=== PATIENT | female | born 1940 | race Caucasian/White ===

== ENCOUNTER → 2016-04-06 | Outpatient (CLI) | payer MEDICARE, MEDICAID ==
[~2016-04-06] MED LIST: /GLYB5TA OR; /LABE20TA OR; ACTO15TA OR; ASPI325T OR; CRES20TA OR; FERR325T OR; FURO80TA2 OR; LEVO25TA2 OR
[2016-04-06 18:35] LABS: ALBUMIN 3.5 GM/DL (3.2-5.2); CALCIUM LEVEL 9.1 MG/DL (8.8-10.2); CREATININE FOR GFR 2.39 MG/DL (0.55-1.02); GLOMERULAR FILTRATION RATE 20.9 (>39); MAGNESIUM LEVEL 2.5 MG/DL (1.8-2.4); PHOSPHORUS LEVEL 3.6 MG/DL (2.5-4.9); POTASSIUM SERUM 3.9 MEQ/L (3.5-5.1)
[2016-04-06 19:00] LABS: MEAN CORPUSCULAR HEMOGLOBIN 26.9 pg (27.0-33.0); MEAN CORPUSCULAR HGB CONC 31.8 g/dl (32.0-36.5); MEAN CORPUSCULAR VOLUME 84.5 fl (80.0-96.0); RED CELL DISTRIBUTION WIDTH 14.2 % (11.5-14.5); WHITE BLOOD COUNT 8.8 K/mm3 (4.0-10.0)
[2016-04-06 20:24] LABS: CALCIUM OXALATE CRYSTALS LARGE; RENAL EPITHELIAL CELLS 1 /HPF
== END ==
LOC: M SMT 10:57
PROVIDERS: ATTEND Internal Medicine Nephrology
DX: N18.4 Chronic kidney disease, stage 4 (severe) (principal); E11.22 Type 2 diabetes mellitus with diabetic chronic kidney disease; N25.81 Secondary hyperparathyroidism of renal origin; E03.9 Hypothyroidism, unspecified

== ENCOUNTER → 2016-07-12 | Outpatient (CLI) | payer MEDICARE, MEDICAID ==
[2016-07-12 13:28] LABS: ALBUMIN 3.6 GM/DL (3.2-5.2); CREATININE FOR GFR 2.27 MG/DL (0.55-1.02); GLOMERULAR FILTRATION RATE 22.2 (>39); MAGNESIUM LEVEL 2.5 MG/DL (1.8-2.4); PHOSPHORUS LEVEL 3.6 MG/DL (2.5-4.9)
== END ==
LOC: M SMT 10:21
PROVIDERS: ATTEND Internal Medicine Nephrology
DX: N18.4 Chronic kidney disease, stage 4 (severe) (principal); E11.22 Type 2 diabetes mellitus with diabetic chronic kidney disease; N25.81 Secondary hyperparathyroidism of renal origin

== ENCOUNTER → 2016-07-14 | Outpatient (CLI) | payer MEDICARE, MEDICAID ==
[2016-07-14 19:32] LABS: FREE T4 1.13 NG/DL (0.76-1.46)
== END ==
LOC: M SMT 11:15
PROVIDERS: ATTEND Internal Medicine Nephrology
DX: E03.9 Hypothyroidism, unspecified (principal)

== ENCOUNTER → 2016-10-16 | Outpatient (CLI) | payer MEDICARE, MEDICAID ==
[~2016-10-16] MED LIST changes: +AMLO5TAB2 PO; +CALC1CAP31 PO; +CARV25TA PO; +EZET10TA PO; +GLIP1TAB49 PO; +LEVE1INJ5 SC; +LEVO50TA5 PO; +MULT1TAB10 PO; +ONGL10TA3 PO; +POTA1TAB14 PO; +TORS20TA2 PO
[2016-10-16 13:18] LABS: MEAN CORPUSCULAR HEMOGLOBIN 26.7 pg (27.0-33.0); MEAN CORPUSCULAR HGB CONC 32.6 g/dl (32.0-36.5); MEAN CORPUSCULAR VOLUME 82.1 fl (80.0-96.0); RED CELL DISTRIBUTION WIDTH 15.1 % (11.5-14.5); WHITE BLOOD COUNT 11.2 K/mm3 (4.0-10.0)
[2016-10-16 13:45] LABS: ALBUMIN 3.5 GM/DL (3.2-5.2); CALCIUM LEVEL 9.4 MG/DL (8.8-10.2); CREATININE FOR GFR 2.65 MG/DL (0.55-1.02); GLOMERULAR FILTRATION RATE 18.5 (>39); POTASSIUM SERUM 3.9 MEQ/L (3.5-5.1)
== END ==
LOC: M SMT 10:09
PROVIDERS: ATTEND Internal Medicine Nephrology
DX: N18.4 Chronic kidney disease, stage 4 (severe) (principal); E11.22 Type 2 diabetes mellitus with diabetic chronic kidney disease; N25.81 Secondary hyperparathyroidism of renal origin

== ENCOUNTER → 2016-12-11 | Outpatient (CLI) | payer MEDICARE, MEDICAID ==
--- NOTE | 2016-12-11 15:29 | REP ---
BILATERAL UPPER EXTREMITY DUPLEX DOPPLER ARTERIAL AND VENOUS ULTRASOUND: Real-time ultrasound evaluation and duplex Doppler interrogation of bilateral upper extremity venous and arterial systems performed. There is no evidence of deep vein thrombosis in either jugular, subclavian, axillary, or brachial vein. Bilateral basilic veins are quite small in size, at the level of the upper right humerus and lower humerus 4 mm and on the left at the upper humerus 5 mm in diameter and lower humerus 4 mm in diameter. They are quite small more peripherally. Cephalic vein is 4 mm at the upper humerus and 3 mm at the lower humerus on the right and in the right forearm is between 2 and 3 mm. Median cubital vein on the right is 5 mm. On the left, the cephalic vein is 4 mm at the level of the humerus and 2 mm in the forearm. Median cubital vein is 3 mm. Axillary, brachial, radial, and ulnar arteries are widely patent with triphasic waveforms. Axillary and brachial arteries are 4 mm in diameter bilaterally, and radial and ulnar arteries are 2 mm in diameter bilaterally. Signed by Derrick Arita MD 12/12/2016 07:55 P
== END ==
LOC: M RAD 12:39
PROVIDERS: ATTEND Surgery Vascular Surgery
DX: N18.6 End stage renal disease (principal); Z79.899 Other long term (current) drug therapy

== ENCOUNTER 2016-12-28 09:26 | Day surgery (SDC) | payer MEDICARE, MEDICAID ==
[~2016-12-28] VITALS: Ht 149.9 cm; Wt 73.5 kg
[2016-12-28] MEDS ORDERED: BUPIVACAINE HCL 0.5% 30 ML VIAL As Ordered ONE (11:06)
[2016-12-28] MEDS ORDERED: HEPARIN SOD (PORCINE) 5000 UNITS/ML VIAL As Ordered ONE (11:06)
[2016-12-28] MEDS ORDERED: LIDOCAINE 1% SDV INJ 30 ML VIAL As Ordered ONE (11:07)
[2016-12-28] MEDS ORDERED: fentaNYL 100 MCG/2 ML INJECTION (J3010) As Ordered ONE (11:13)
[2016-12-28] MEDS ORDERED: PROPOFOL 200 MG/20 ML VIAL As Ordered ONE (11:13)
[2016-12-28] MEDS ORDERED: LIDOCAINE 2% INJ 100 MG/5 ML SDV (FOR ANES.) As Ordered ONE (11:13)
[2016-12-28] MEDS ORDERED: MIDAZOLAM INJ 2 MG/2 ML VIAL (J2250) As Ordered ONE (11:14)
[2016-12-28] MEDS ORDERED: ePHEDrine SULFATE 25 MG/5 ML(5MG/ML) SYRINGE As Ordered ONE (12:07)
[2016-12-28] MEDS ORDERED: NORCO, ANEXSIA 5/325MG TABLET (HYDROcodone/ACETAMINOPHEN) PO PRN (13:15)
[2016-12-28] MEDS ORDERED: LR 1,000 ML IV SCH (13:15)
[2016-12-28] MEDS ORDERED: ONDANSETRON 4MG/2ML VIAL (J2405) IV PRN (13:15)
[2016-12-28 14:30] VITALS: BP 139/62
--- NOTE | 2017-01-05 13:31 | RO ---
DATE OF PROCEDURE: 12/28/2016 PREPROCEDURE DIAGNOSIS: Chronic renal insufficiency nearing end stage renal disease. POSTPROCEDURE DIAGNOSIS: Chronic renal insufficiency nearing end stage renal disease. PROCEDURE: Left radiocephalic arterial venous fistula creation. ATTENDING SURGEON: Osmin Avendaño MD HOT DIP PLATER: None. INDICATION: The patient is a 76-year-old female with chronic renal insufficiency nearing end stage renal disease who requires access for hemodialysis in the future. The patient was evaluated and felt to be a good candidate for a left radiocephalic possible left brachiocephalic arteriovenous fistula. Risks, benefits and alternative treatment options were discussed with the patient. ANESTHESIA: Local MAC. ESTIMATED BLOOD LOSS: 20 mL. IV FLUIDS: 500 mL. HEPARIN: None. COMPLICATIONS: None. DRAINS: None. SPECIMENS: None. DESCRIPTION OF PROCEDURE: The patient was taken to the operating room and placed supine on the operating room tablet and the left upper extremity was then prepped and draped in a standard surgical fashion. The skin overlying the cephalic vein and radial artery at the wrist were anesthetized with 1% lidocaine mixed with 0.5% Marcaine, after which two incisions were made, one over the cephalic vein and one over the radial artery and the radial artery and cephalic vein were sharply dissected free and the cephalic vein was then ligated distally and transected with the cephalic vein being dilated with heparinized saline and #5-Libyan and #8-Libyan pediatric feeding tubes. There was good flow noted to the cephalic vein. The cephalic vein was then brought through a tunnel between the two incisions and anastomosed the radial artery in using #6-0 Prolene suture in a running continuous fashion. There was good flow in the fistula. Doppler ultrasound evaluation confirmed excellent flow. The incisions were closed after hemostasis was obtained using #3-0 Monocryl in a running subcuticular fashion. Steri-Strips and dressings were applied. The patient tolerated the procedure well. All instrument, sponge and needle counts were correct at the end of the case. There were no complications. Dr. Avendaño was present for and directed the entire case. The patient was transferred to the recovery room, awake, alert, extubated and in stable condition.
== END 2016-12-28 14:40 | disposition home or self-care (01) ==
LOC: M SDC 09:26
PROVIDERS: ATTEND Surgery Vascular Surgery
DX: N18.6 End stage renal disease (principal); I25.10 Atherosclerotic heart disease of native coronary artery without angina pectoris; I25.2 Old myocardial infarction; E10.9 Type 1 diabetes mellitus without complications; Z79.4 Long term (current) use of insulin; Z88.8 Allergy status to other drugs, medicaments and biological substances; Z79.899 Other long term (current) drug therapy; Z98.61 Coronary angioplasty status
CPT/HCPCS: 36415; 36821; 84132; J2250; J3010

== ENCOUNTER → 2017-01-25 | Outpatient (CLI) | payer MEDICARE, MEDICAID ==
[2017-01-25 14:28] LABS: MEAN CORPUSCULAR HEMOGLOBIN 26.3 pg (27.0-33.0); MEAN CORPUSCULAR HGB CONC 31.4 g/dl (32.0-36.5); MEAN CORPUSCULAR VOLUME 83.8 fl (80.0-96.0); PLATELET COUNT, AUTOMATED 198 10^3/uL (150-450); RED CELL DISTRIBUTION WIDTH 15.3 % (11.5-14.5); WHITE BLOOD COUNT 10.5 10^3/uL (4.0-10.0)
[2017-01-25 15:09] LABS: ALBUMIN 3.2 GM/DL (3.2-5.2); CALCIUM LEVEL 8.5 MG/DL (8.8-10.2); CREATININE FOR GFR 3.01 MG/DL (0.55-1.02); MAGNESIUM LEVEL 2.7 MG/DL (1.8-2.4); PHOSPHORUS LEVEL 6.5 MG/DL (2.5-4.9); POTASSIUM SERUM 4.1 MEQ/L (3.5-5.1)
== END ==
LOC: M SMT 11:14
PROVIDERS: ATTEND Internal Medicine Nephrology
DX: N18.4 Chronic kidney disease, stage 4 (severe) (principal); R60.0 Localized edema; I12.9 Hypertensive chronic kidney disease with stage 1 through stage 4 chronic kidney disease, or unspecified chronic kidney disease

== ENCOUNTER 2017-03-21 14:53 | Day surgery (SDC) | payer MEDICARE, MEDICAID ==
[2017-03-21] MEDS ORDERED: SODIUM CHLORIDE 0.9% 1000 ML IV (15:15)
[2017-03-21 15:50] LABS: POTASSIUM SERUM 3.9 MEQ/L (3.5-5.1)
[2017-03-21 15:53] LABS: BEDSIDE GLUCOSE 168 MG/DL (83-110)
[2017-03-21 17:28] LABS: BEDSIDE GLUCOSE 168 MG/DL (83-110)
[2017-03-21] MEDS: BUPIVACAINE HCL 0.5% 30 ML VIAL As Ordered (19:33)
[2017-03-21] MEDS: LIDOCAINE 1% SDV INJ 30 ML VIAL As Ordered (19:33)
[2017-03-21] MEDS: HEPARIN SOD (PORCINE) 5000 UNITS/ML VIAL As Ordered (19:42)
[2017-03-21] MEDS ORDERED: fentaNYL 100 MCG/2 ML INJECTION (J3010) As Ordered (19:47)
[2017-03-21] MEDS ORDERED: PROPOFOL 200 MG/20 ML VIAL As Ordered ×2 (19:47)
[2017-03-21] MEDS ORDERED: LIDOCAINE 2% INJ 100 MG/5 ML SYRINGE As Ordered (19:47)
[2017-03-21] MEDS ORDERED: MIDAZOLAM INJ 2 MG/2 ML VIAL (J2250) As Ordered (19:47)
[2017-03-21] MEDS ORDERED: ePHEDrine INJ 50 MG/ML VIAL As Ordered (19:47)
== END 2017-03-21 21:25 | disposition home or self-care (01) ==
LOC: M SDC 14:53
DX: N18.5 Chronic kidney disease, stage 5 (principal); E03.9 Hypothyroidism, unspecified; E78.5 Hyperlipidemia, unspecified; I25.10 Atherosclerotic heart disease of native coronary artery without angina pectoris; I25.5 Ischemic cardiomyopathy; I25.2 Old myocardial infarction; I13.2 Hypertensive heart and chronic kidney disease with heart failure and with stage 5 chronic kidney disease, or end stage renal disease; E10.9 Type 1 diabetes mellitus without complications; R06.02 Shortness of breath; R06.83 Snoring; E66.9 Obesity, unspecified; Z88.5 Allergy status to narcotic agent; Z79.899 Other long term (current) drug therapy; Z98.61 Coronary angioplasty status
CPT/HCPCS: 36821

== ENCOUNTER → 2017-04-12 | Outpatient (REF) | payer MEDICARE, MEDICAID ==
[2017-04-12 19:17] LABS: FREE T4 1.09 NG/DL (0.76-1.46)
== END ==
LOC: M LAB REF 17:17
DX: E03.9 Hypothyroidism, unspecified (principal); N18.4 Chronic kidney disease, stage 4 (severe); I12.9 Hypertensive chronic kidney disease with stage 1 through stage 4 chronic kidney disease, or unspecified chronic kidney disease; E11.22 Type 2 diabetes mellitus with diabetic chronic kidney disease; E66.9 Obesity, unspecified; E78.5 Hyperlipidemia, unspecified; I25.5 Ischemic cardiomyopathy; Z98.61 Coronary angioplasty status
CPT/HCPCS: 84443

== ENCOUNTER → 2017-04-12 | Outpatient (REF) | payer MEDICARE, MEDICAID ==
[2017-04-12 18:52] LABS: ALBUMIN 3.7 GM/DL (3.2-5.2); ALBUMIN/GLOBULIN RATIO 1.06 (1.00-1.93); ALKALINE PHOSPHATASE 91 U/L (45-117); ALT/SGPT 36 U/L (12-78); AST/SGOT 21 U/L (7-37); BILIRUBIN,DIRECT < 0.1 MG/DL (0.0-0.2); BILIRUBIN,TOTAL 0.3 MG/DL (0.2-1.0); CHOLESTEROL LEVEL 180 MG/DL (<200); HDL CHOLESTEROL 44 MG/DL (>40); LDL CHOLESTEROL 62.2 MG/DL (<100); NON-HDL-C 136 MG/DL; TOTAL PROTEIN 7.2 GM/DL (6.4-8.2); TRIGLYCERIDES LEVEL 369 MG/DL (<150)
== END ==
LOC: M LAB REF 17:19
DX: E11.9 Type 2 diabetes mellitus without complications (principal); E66.9 Obesity, unspecified; E78.5 Hyperlipidemia, unspecified; I12.9 Hypertensive chronic kidney disease with stage 1 through stage 4 chronic kidney disease, or unspecified chronic kidney disease; N18.4 Chronic kidney disease, stage 4 (severe); I25.5 Ischemic cardiomyopathy; Z98.61 Coronary angioplasty status

== ENCOUNTER → 2017-05-11 | Outpatient (CLI) | payer MEDICARE, MEDICAID | LOC: M RAD 13:39 | DX: N18.6 End stage renal disease (principal); N18.4 Chronic kidney disease, stage 4 (severe); E11.22 Type 2 diabetes mellitus with diabetic chronic kidney disease; T82.858A Stenosis of other vascular prosthetic devices, implants and grafts, initial encounter; T82.598A Other mechanical complication of other cardiac and vascular devices and implants, initial encounter | CPT/HCPCS: G0365 ==

== ENCOUNTER 2017-06-28 09:38 | Day surgery (SDC) | payer MEDICARE, MEDICAID ==
[~2017-06-28 09:38] MED LIST changes: -/GLYB5TA OR; -/LABE20TA OR; -ACTO15TA OR; -AMLO5TAB2 PO; -ASPI325T OR; -CALC1CAP31 PO; -CARV25TA PO; -CRES20TA OR; -EZET10TA PO; -FERR325T OR; -FURO80TA2 OR; -GLIP1TAB49 PO; +HEPARIN SOD (PORCINE) 5000 UNITS/ML VIAL As Ordered; -LEVE1INJ5 SC; -LEVO25TA2 OR; -LEVO50TA5 PO; -MULT1TAB10 PO; -ONGL10TA3 PO; -POTA1TAB14 PO; -TORS20TA2 PO
[2017-06-28] MEDS ORDERED: LR 1,000 ML IV (09:45)
[2017-06-28 10:32] LABS: POTASSIUM SERUM 3.8 MEQ/L (3.5-5.1)
[2017-06-28 10:34] LABS: BEDSIDE GLUCOSE 145 MG/DL (83-110)
[2017-06-28] MEDS ORDERED: MIDAZOLAM INJ 2 MG/2 ML VIAL (J2250) As Ordered (12:38)
[2017-06-28] MEDS ORDERED: ONDANSETRON 4MG/2ML VIAL (J2405) As Ordered (12:38)
[2017-06-28] MEDS ORDERED: ePHEDrine SULFATE 25 MG/5 ML(5MG/ML) SYRINGE As Ordered (12:38)
[2017-06-28] MEDS ORDERED: LIDOCAINE 2% INJ 100 MG/5 ML SDV (FOR ANES.) As Ordered (12:38)
[2017-06-28] MEDS ORDERED: PROPOFOL 200 MG/20 ML VIAL As Ordered (12:38)
[2017-06-28] MEDS ORDERED: fentaNYL 100 MCG/2 ML INJECTION (J3010) As Ordered (12:38)
[2017-06-28] MEDS: BUPIVACAINE HCL 0.5% 30 ML VIAL As Ordered (13:00)
[2017-06-28] MEDS: LIDOCAINE 1% SDV INJ 30 ML VIAL As Ordered (13:00)
== END 2017-06-28 14:05 | disposition home or self-care (01) ==
LOC: M SDC 09:38
DX: N18.9 Chronic kidney disease, unspecified (principal); E11.22 Type 2 diabetes mellitus with diabetic chronic kidney disease; I13.0 Hypertensive heart and chronic kidney disease with heart failure and stage 1 through stage 4 chronic kidney disease, or unspecified chronic kidney disease; I50.9 Heart failure, unspecified; E03.9 Hypothyroidism, unspecified; I25.10 Atherosclerotic heart disease of native coronary artery without angina pectoris; Z98.61 Coronary angioplasty status; Z79.82 Long term (current) use of aspirin; Z79.899 Other long term (current) drug therapy; E78.5 Hyperlipidemia, unspecified
CPT/HCPCS: 36821

== ENCOUNTER → 2017-07-09 | Outpatient (CLI) | payer MEDICARE, MEDICAID ==
[~2017-07-09] MED LIST changes: -HEPARIN SOD (PORCINE) 5000 UNITS/ML VIAL As Ordered; +ISOVUE-300 61% 50ML VIAL (Q9967) As Ordered; +MIDAZOLAM INJ 2 MG/2 ML VIAL (J2250) As Ordered; +fentaNYL 100 MCG/2 ML INJECTION (J3010) As Ordered
== END | disposition home or self-care (01) ==
LOC: M IRPRO 07:52
DX: T82.590A Other mechanical complication of surgically created arteriovenous fistula, initial encounter (principal); N18.9 Chronic kidney disease, unspecified
CPT/HCPCS: 36901

== ENCOUNTER → 2017-09-12 | Outpatient (CLI) | payer MEDICARE, MEDICAID ==
[2017-09-12 18:43] LABS: FERRITIN 482 NG/ML (8-252); FREE T4 1.16 NG/DL (0.76-1.46); IRON (FE) 33 UG/DL (50-170); PERCENT SATURATION 12.6 % (13.2-45.0); TOTAL IRON BINDING CAPACITY 261 UG/DL (250-450)
== END ==
LOC: M SMT 15:30
DX: N18.4 Chronic kidney disease, stage 4 (severe) (principal); R06.02 Shortness of breath; I51.7 Cardiomegaly; I27.20 Pulmonary hypertension, unspecified
CPT/HCPCS: 83550

== ENCOUNTER → 2017-10-15 | Outpatient (CLI) | payer MEDICARE, MEDICAID ==
[~2017-10-15] MED LIST changes: +LIDOCAINE 2% MDV 20 ML VIAL As Ordered
== END | disposition home or self-care (01) ==
LOC: M IRPRO 09:37
DX: T82.858A Stenosis of other vascular prosthetic devices, implants and grafts, initial encounter (principal); N18.9 Chronic kidney disease, unspecified
CPT/HCPCS: 36902

== ENCOUNTER → 2017-11-28 | Outpatient (CLI) | payer MEDICARE, MEDICAID | END | disposition home or self-care (01) | LOC: M IRPRO 08:01 | DX: N18.9 Chronic kidney disease, unspecified (principal); Z53.8 Procedure and treatment not carried out for other reasons ==

== ENCOUNTER 2018-01-16 14:41 | Emergency (ER) | payer MEDICARE, MEDICAID ==
[2018-01-16] MEDS: NORCO, ANEXSIA 5/325MG TABLET (HYDROcodone/ACETAMINOPHEN) PO (16:00)
== END 2018-01-16 16:06 | disposition home or self-care (01) ==
LOC: M ED 14:41
DX: S29.011A Strain of muscle and tendon of front wall of thorax, initial encounter (principal); X50.0XXA Overexertion from strenuous movement or load, initial encounter; Y92.9 Unspecified place or not applicable; Y93.9 Activity, unspecified; Y99.9 Unspecified external cause status; I50.9 Heart failure, unspecified; I25.2 Old myocardial infarction; E03.9 Hypothyroidism, unspecified; Z95.5 Presence of coronary angioplasty implant and graft; Z79.82 Long term (current) use of aspirin; Z79.4 Long term (current) use of insulin; Z79.899 Other long term (current) drug therapy; Z88.5 Allergy status to narcotic agent
CPT/HCPCS: 71101

== ENCOUNTER → 2018-02-06 | Outpatient (REF) | payer MEDICARE, MEDICAID ==
[2018-02-06 19:18] LABS: FERRITIN 998 NG/ML (8-252); FREE T4 1.24 NG/DL (0.76-1.46)
== END ==
LOC: M LAB REF 18:04
DX: N18.4 Chronic kidney disease, stage 4 (severe) (principal); E03.9 Hypothyroidism, unspecified; D63.1 Anemia in chronic kidney disease
CPT/HCPCS: 84443

== ENCOUNTER → 2018-02-07 | Outpatient (CLI) | payer MEDICARE, MEDICAID | LOC: M LAB 15:01 | DX: J90 Pleural effusion, not elsewhere classified (principal); I70.0 Atherosclerosis of aorta; R06.02 Shortness of breath | CPT/HCPCS: 71046 ==

== ENCOUNTER → 2018-02-12 | Outpatient (CLI) | payer MEDICARE, MEDICAID ==
[~2018-02-12] MED LIST changes: +/GLYB5TA OR; +/LABE20TA OR; +ACTO15TA OR; +AMLO5TAB4 PO; +ASPI325T OR; +CALC1CAP31 PO; +CARV25TA PO; +CRES20TA OR; +EZET10TA PO; +FERR325T OR; +FURO80TA2 OR; +GLIP1TAB49 PO; -ISOVUE-300 61% 50ML VIAL (Q9967) As Ordered; +LEVE1INJ5 SC; +LEVO25TA2 OR; +LEVO50TA5 PO; -LIDOCAINE 2% MDV 20 ML VIAL As Ordered; -MIDAZOLAM INJ 2 MG/2 ML VIAL (J2250) As Ordered; +MULT1TAB10 PO; +NORCOTAB PO; +ONGL10TA3 PO; +POTA1TAB14 PO; +TORS20TA2 PO; -fentaNYL 100 MCG/2 ML INJECTION (J3010) As Ordered
--- NOTE | 2018-02-12 09:14 | REP ---
CT chest without contrast: History: Pleural effusion. Comparison chest x-ray: February 07, 2018. No comparison CT study. CT findings: CT study confirms the presence of a small left pleural effusion. In addition, there is lobar atelectasis in the left lower lobe with air bronchograms. There is a pericardial effusion which is small also visualized. Cardiomegaly is observed. Vascular calcification is noted. There are two or three normal-sized mediastinal lymph nodes. No adenopathy is seen. Extensive coronary artery calcification is noted. There is a tiny quantity of right pleural fluid. There is a large gallstone in the gallbladder. Renal cortical atrophy is seen. There is a small cyst in the upper pole of the right kidney. No adrenal lesion is seen. No significant bony abnormality is seen. The remaining lung brooks are unremarkable. Impression: Essentially lobar atelectasis left lower lobe. Small left and tiny right pleural effusions. Small pericardial effusion. Cardiomegaly. Electronically Signed by Neo Guerrero MD 02/12/2018 11:43 A
== END ==
LOC: M RAD 06:58
PROVIDERS: ATTEND Internal Medicine Nephrology
DX: J90 Pleural effusion, not elsewhere classified (principal); I50.22 Chronic systolic (congestive) heart failure; N18.4 Chronic kidney disease, stage 4 (severe)

== ENCOUNTER → 2018-03-05 | Outpatient (REF) | payer MEDICARE, MEDICAID ==
[~2018-03-05] MED LIST changes: -AMLO5TAB4 PO; +AMLO5TAB6 PO; -GLIP1TAB49 PO; +GLIP5TAB20 PO
[2018-03-05 21:19] LABS: CHOLESTEROL LEVEL 151 MG/DL (<200); CHOLESTEROL RISK RATIO 3.595 (<5); FERRITIN 926 NG/ML (8-252); HDL CHOLESTEROL 42 MG/DL (>40); IRON (FE) 55 UG/DL (50-170); LDL CHOLESTEROL 50 MG/DL (<100); NON-HDL-C 109 MG/DL; PERCENT SATURATION 20.2 % (13.2-45.0); TOTAL IRON BINDING CAPACITY 272 UG/DL (250-450); TRIGLYCERIDES LEVEL 296 MG/DL (<150)
[2018-03-06 10:21] LABS: HEPATITIS B SURFACE ANTIBODY NEGATIVE (POSITIVE)
[2018-03-06 10:32] LABS: HEPATITIS B SURFACE ANTIGEN NEGATIVE (NEGATIVE)
[2018-03-06 11:00] LABS: HEPATITIS B CORE ANTIBODY IGM NEGATIVE (NEGATIVE); HEPATITIS C VIRUS ABY INDEX 0.1 INDEX (<0.8)
== END ==
LOC: M LAB REF 17:26
PROVIDERS: ATTEND Internal Medicine Nephrology
DX: N18.5 Chronic kidney disease, stage 5 (principal); D63.1 Anemia in chronic kidney disease

== ENCOUNTER 2018-04-29 14:29 | Inpatient (IN) | payer MEDICARE, MEDICAID ==
[~2018-04-29] VITALS: Ht 152.4 cm; Wt 76.5 kg
[2018-04-29] MEDS ORDERED: CARV12.5 PO (14:55)
[2018-04-29] MEDS ORDERED: HYDR12CA PO (14:55)
[2018-04-29 15:20] LABS: BASO % 0.3 % (0.0-1.0); EOS # 0.3 10^3/uL (0.0-0.50); EOS % 1.9 % (0.0-3.0); HEMATOCRIT 39.8 % (36.0-47.0); HEMOGLOBIN 13.1 g/dl (12.0-15.5); LYMPH # 1.4 10^3/uL (1.5-4.5); LYMPH % 10.6 % (24.0-44.0); MEAN CORPUSCULAR HEMOGLOBIN 25.2 pg (27.0-33.0); MEAN CORPUSCULAR HGB CONC 32.9 g/dl (32.0-36.5); MEAN CORPUSCULAR VOLUME 76.7 fl (80.0-96.0); MONO % 7.1 % (0.0-5.0); NEUTROPHILS # 10.7 10^3/uL (1.8-7.7); NEUTROPHILS % 79.7 % (36.0-66.0); PLATELET COUNT, AUTOMATED 180 10^3/uL (150-450); RED BLOOD COUNT 5.19 10^6/uL (4.00-5.40); WHITE BLOOD COUNT 13.4 10^3/uL (4.0-10.0)
[2018-04-29 15:43] LABS: HEMOGLOBIN A1c 9.1 %
[2018-04-29 15:57] LABS: CK-MB VALUE MASS < 1.0 NG/ML (<3.6); CPK CREATINE PHOSPHOKINASE 46 U/L (26-192); MB/CK RELATIVE INDEX 2.17 (< OR =4); TROPONIN I < 0.02 NG/ML (< 0.10)
[2018-04-29] MEDS ORDERED: NS 500 ML IV ONE (16:00)
[2018-04-29 16:02] LABS: ALBUMIN 3.7 GM/DL (3.2-5.2); BILIRUBIN,TOTAL 0.5 MG/DL (0.2-1.0); CALCIUM LEVEL 8.2 MG/DL (8.8-10.2); CREATININE FOR GFR 4.33 MG/DL (0.55-1.30); GLOMERULAR FILTRATION RATE 10.5 (>39); MAGNESIUM LEVEL 2.7 MG/DL (1.8-2.4); PHOSPHORUS LEVEL 6.6 MG/DL (2.5-4.9); POTASSIUM SERUM 2.6 MEQ/L (3.5-5.1); TOTAL PROTEIN 7.6 GM/DL (6.4-8.2)
[2018-04-29] MEDS ORDERED: POTASSIUM CHLORIDE 10 MEQ SR TABLET PO ONE ×2 (16:15→17:30)
--- NOTE | 2018-04-29 16:22 | REP ---
Portable chest x-ray: Sitting AP view. History: Weakness. Comparison study: February 24. Findings: Mild cardiomegaly is observed. The lungs are well inflated and clear. The pleural angles are sharp. Previously noted left pleural effusion is resolved. The aorta is calcific and tortuous. Pulmonary vasculature is cephalized. No infiltrate is seen. Impression: Pulmonary vascular cephalization and mild cardiomegaly. Otherwise no acute disease. Electronically Signed by Neo Guerrero MD 04/29/2018 04:13 P
[2018-04-29 16:43] LABS: INFLUENZA A AMPLIFICATION NEGATIVE (NEGATIVE); INFLUENZA B AMPLIFICATION NEGATIVE (NEGATIVE)
[2018-04-29] MEDS ORDERED: KCL 20MEQ IN 100ML SWI (KRUN) 20 MEQ in APPROPRIATE DILUENT 1 EA IV ONE ×2 (17:30)
[2018-04-29] MEDS ORDERED: FERR325T3 PO (18:12)
[2018-04-29] MEDS ORDERED: ASPI-222 PO (18:12)
[2018-04-29] MEDS ORDERED: GLIP10TA6 PO (18:12)
[2018-04-29] MEDS ORDERED: ROSU20TA4 PO (18:13)
[2018-04-29] MEDS ORDERED: VITMTA PO (18:14)
[2018-04-29] MEDS: KCL 10MEQ/100ML SWI (KRUN) 100 ML IV SCH ×2 (18:19→19:44)
[2018-04-29] MEDS: NS 1,000 ML IV SCH (18:20)
--- NOTE | 2018-04-29 18:22 | HPE ---
DATE OF ADMISSION: 04/29/2018 A 77-year-old female with a past medical history of hypertension, diabetes, chronic kidney disease V, coronary artery disease, status post percutaneous coronary intervention (PCI), presents to the emergency room with generalized weakness and bilateral upper extremity heaviness for the past 3 days. She denies any nausea, vomiting, or diarrhea. Her appetite has been unchanged. She denies any subjective feeling of fever, aches, or chills. She has no dysuria, frequency, or urgency of urination, and she has been taking all of her medications as prescribed. She does have an associated vertigo in the last 3 days with the symptoms of generalized weakness. In the emergency room (ER), she was found to be orthostatic and was given a 500 mL IV bolus of normal saline. She was also found to be subsequently hypokalemia and potassium chloride initiation has been started. She will be admitted for further management. PAST MEDICAL HISTORY: Chronic kidney disease V. Coronary artery disease, status post PCI. Hypertension. Diabetes. Ischemic cardiomyopathy. Ejection fraction (EF) being mildly reduced. History of hypothyroidism. Status post right shunt placed in her arm September 2017. ALLERGIES: She has drug allergies to CODEINE. FAMILY HISTORY: Noncontributory. SOCIAL HISTORY: Patient denies tobacco, alcohol, or illicit drugs. MEDICATIONS: She takes at home are as follows: - [place] as needed - aspirin 325 mg orally daily - Coreg 25 mg orally twice daily - ferrous sulfate 325 mg orally twice daily - glipizide 10 mg orally daily - hydrochlorothiazide 12.5 mg orally daily - Synthroid 50 mcg orally daily - multivitamin one tablet orally daily - potassium chloride 20 mEq orally daily - torsemide 20 mg orally twice daily - calcitriol 0.25 mcg orally weekly - ezetimibe 10 mg orally daily - insulin detemir 8 units subcu nightly - insulin detemir 44 units subcu in the morning - rosuvastatin 20 mg orally daily - saxagliptin 2.5 mg orally daily REVIEW OF SYSTEMS: Negative all ten major systems except what has been mentioned in the history of the present illness. Vital Signs: Blood pressure 130/61, heart rate 62, regular, respiratory rate 18, temperature is 96.2, oxygen saturation is 96% on room air. Head is atraumatic, normocephalic. Neck supple. No jugular venous distention (JVD). Lungs are clear to auscultation. S1, S2 audible, No murmurs appreciated. Abdomen: Soft, positive bowel sounds. No pedal edema. Skin: Intact. Neurologic Examination: Patient awake, alert, oriented times three. LABORATORY: WBC 13.4, hemoglobin 13.1, hematocrit 39.8, platelets are 180,000. Sodium 132, potassium 2.6, chloride 91, CO2 of 25, BUN 132, creatinine is 4.33, glucose is 285, calcium 8.2, AST 26, ALT 31, troponin is less than 0.02, BNP is 621. Urinalysis is positive for urinary tract infection (UTI). Influenza A and B screen are negative. Chest x-ray shows pulmonary vascular cephalization and mild cardiomegaly. IMPRESSION: 1. Orthostatic hypotension. 2. Acute kidney injury (SHAUN) and chronic kidney disease. 3. Hypokalemia. 4. Urinary tract infection. PLAN: The patient is to be admitted to the medical-surgical floor. I believe the orthostatic hypotension, acute kidney injury, chronic kidney disease and hypokalemia are all related to the torsemide therapy and hydrochlorothiazide causing the hypokalemia and volume depletion. We are going to replete her potassium and stop her hydrochlorothiazide and torsemide for now and check orthostatics every 8 hours. Will follow BMP in the morning for potassium trends, as well as BUN and creatinine trends. I am going to start the patient on ciprofloxacin 200 mg IV every 12 hours for her UTI. Other than the diuretics being held, all other preadmission medications will be resumed and will continue following her care on the medical-surgical floor.
[2018-04-29 18:24] LABS: CALCIUM LEVEL 8.4 MG/DL (8.8-10.2); CREATININE FOR GFR 4.21 MG/DL (0.55-1.30); GLOMERULAR FILTRATION RATE 10.8 (>39); POTASSIUM SERUM 2.7 MEQ/L (3.5-5.1)
[2018-04-29 18:50] VITALS: BP 136/62
[2018-04-29 20:00] VITALS: BP 144/60
--- NOTE | 2018-04-29 20:01 | ECGEPIP ---
Stationary ECG Study [facility] - ED Test Date: 2018-04-29 Pat Name: ELIZABETH HAMLIN Department: Room: [place] [address] Gender: F Residential Sales Consultant: donnie : [id number] Requested By: Sara Torres Order Number: [id number] Reading MD: Sara Torres Measurements Intervals [place] Rate: 59 P: 87 ND: 212 QRS: -16 QRSD: 106 T: 77 QT: 452 QTc: 450 Interpretive Statements SINUS BRADYCARDIA WITH FIRST DEGREE AV BLOCK NONSPECIFIC ST & T-WAVE ABNORMALITY - TO CONSIDER ANTEROSEPTAL ISCHEMIA LEFTWARD AXIS INFERIOR WALL GA AGE UNDTERMINED CLINICAL CORRELATION ADVISED CW 06/28/[address] T WAVE CHANGES Electronically Signed On 04-29-2018 20:01:08 EST by Sara Torres
[2018-04-29 20:02] VITALS: BP 135/58
[2018-04-29 20:05] VITALS: BP 120/60
[2018-04-29] MEDS: CIPROFLOXACIN 200 MG in APPROPRIATE DILUENT 1 EA IV SCH (21:54)
[2018-04-30] VITALS (8 sets, daily range): BP systolic 119–164; BP diastolic 55–74
[2018-04-30] MEDS: LEVOTHYROXINE 50MCG TABLET (0.05MG) PO SCH (06:00)
[2018-04-30 07:01] LABS: BASO # 0.1 10^3/uL (0.0-0.2); BASO % 0.4 % (0.0-1.0); EOS # 0.5 10^3/uL (0.0-0.50); EOS % 4.3 % (0.0-3.0); HEMATOCRIT 36.2 % (36.0-47.0); HEMOGLOBIN 11.7 g/dl (12.0-15.5); LYMPH # 2.3 10^3/uL (1.5-4.5); LYMPH % 18.8 % (24.0-44.0); MEAN CORPUSCULAR HGB CONC 32.3 g/dl (32.0-36.5); MEAN CORPUSCULAR VOLUME 77.4 fl (80.0-96.0); MONO # 1.4 10^3/uL (0.0-0.8); MONO % 11.8 % (0.0-5.0); NEUTROPHILS # 7.7 10^3/uL (1.8-7.7); NEUTROPHILS % 64.4 % (36.0-66.0); PLATELET COUNT, AUTOMATED 152 10^3/uL (150-450); RED BLOOD COUNT 4.68 10^6/uL (4.00-5.40)
[2018-04-30] MEDS: NS 1,000 ML IV SCH ×3 (07:50→20:48)
[2018-04-30 08:10] LABS: ALBUMIN 3.2 GM/DL (3.2-5.2); BILIRUBIN,TOTAL 0.3 MG/DL (0.2-1.0); CALCIUM LEVEL 7.5 MG/DL (8.8-10.2); CREATININE FOR GFR 3.8 MG/DL (0.55-1.30); GLOMERULAR FILTRATION RATE 12.2 (>39); MAGNESIUM LEVEL 2.6 MG/DL (1.8-2.4); POTASSIUM SERUM 3.2 MEQ/L (3.5-5.1); TOTAL PROTEIN 6.8 GM/DL (6.4-8.2)
[2018-04-30] MEDS: CIPROFLOXACIN 200 MG in APPROPRIATE DILUENT 1 EA IV SCH (08:35)
[2018-04-30] MEDS ORDERED: GLUCOSE 4 GM CHEW TABLET PO PRN (10:00)
[2018-04-30] MEDS ORDERED: GLUCAGON FOR INJ 1 MG VIAL (J1610) SC PRN (10:00)
[2018-04-30] MEDS ORDERED: POTASSIUM CHLORIDE 10 MEQ SR TABLET PO ONE (10:00)
[2018-04-30] MEDS ORDERED: DEXTROSE 50% 50 ML SYRINGE IV PRN (10:00)
[2018-04-30] MEDS: ROSUVASTATIN 10 MG TAB (CRESTOR) PO SCH (10:52)
[2018-04-30] MEDS: FERROUS SULFATE 325MG TAB PO SCH ×2 (10:52→20:46)
[2018-04-30] MEDS: CARVedilol 12.5 MG TAB PO SCH ×2 (10:53→20:47)
[2018-04-30] MEDS: MULTIVITAMINS/MINERALS THERAP 1 TAB PO SCH (10:57)
[2018-04-30] MEDS: HumaLOG INSULIN (NovoLOG) PER UNIT SC SCH ×2 (12:46→17:22)
[2018-04-30] MEDS: ASPIRIN ENTERIC 325 MG TAB PO SCH (12:46)
--- NOTE | 2018-04-30 13:45 | IPNPDOC ---
Subjective Date Seen The patient was seen on 04/30/18. Subjective Chief Complaint/HPI Patient seen and examined at bedside. No acute events overnight, she is feeling much better than she was yesterday. She recollects a 3 day history of generalized fatigue and weakness that is much improved today after a night of IV fluids. She denies any headaches, lightheadedness, chest pain, dyspnea, abdominal pain, N/V, dysuria, hematuria. She did complain of making less urine the last couple days, but that has already improved this AM. Constitutional: Denies: Chills, Fever ENT: Denies: Head Aches Pulmonary: Denies: Dyspnea Cardiovascular: Denies: Chest Pain, Palpitations Gastrointestinal: Denies: Nausea, Vomiting, Abdominal Pain, Diarrhea, Constipation Genitourinary: Denies: Dysuria, Frequency, Hematuria Psych: Reports: Mood Normal Objective Physical Examination General Exam: Positive: Alert, Cooperative, No Acute Distress Eye Exam: Positive: EOMI ENT Exam: Positive: Atraumatic, Mucous membr. moist/pink, Pharynx Normal Chest Exam: Positive: Clear to auscultation, Normal air movement; Negative: Rales, Rhonchi, Wheezing Heart Exam: Positive: Rate Normal, Normal S1, Normal S2; Negative: Murmurs, Rubs Abdomen Exam: Positive: Normal bowel sounds, Soft (obese abdomen); Negative: Tenderness, Hepatospenomegaly Skin Exam: Positive: Nl turgor and temperature Psych Exam: Positive: Mood NL Assessment /Plan Assessment Ms. Eisenberg is a 77 year old female with PMHx of ischemic cardiomyopathy with reduced EF and CKD stage V who presented with a 3 day history of generalized weakness, fatigue, and decreased urination. On speaking with Dr. Garnett, her torsemide increased in order to accommodate increasing extravascular volumes. Moreover, she said the patient would benefit from dialysis but is presently not interested. Dr. Garnett, recommended restarting her torsemide at half her usual dose (30mg BID, was 60 mg) and starting spironolactone rather than HCTZ to accommodate for the hypokalemia the patient experienced. Problems (1) Acute kidney injury superimposed on chronic kidney disease Status: Acute Response to Treatment: Improving Problem Text: From previous admission, baseline Cr is ~3.0. Will continue giving gentle fluids @100ml/hr. Patient states she is doing much better and is now able to urinate again. Suspect this is likely due to volume depletion from the diuretics. Will hold diuretics for today and restart tomorrow based on the regimen described above. (2) Orthostatic hypotension Status: Acute Problem Text: Will redo orthostatics today to see if they are improved. (3) Hypokalemia Status: Acute Problem Text: Patient's hypokalemia nearly resolved. Will give KCL as needed and continue to monitor. (4) UTI (urinary tract infection) Status: Resolved Problem Text: Patient had mildly positive UA, but did not have any symptoms. Urine culture<100,000 CFU. Discontinuing Ciprofloxacin. (5) CKD (chronic kidney disease), stage V Status: Chronic (6) Diabetes Status: Chronic Response to Treatment: Stable (7) Essential (primary) hypertension Status: Chronic Response to Treatment: Stable (8) Hypothyroidism Status: Chronic Response to Treatment: Stable (9) CAD S/P percutaneous coronary angioplasty Status: Chronic Response to Treatment: Stable Problem Text: Continue with home medications. (10) Ischemic cardiomyopathy Status: Chronic Response to Treatment: Stable Problem Text: Holding diuretics for the time being. Will restart tomorrow with half dose of torsemide and spironolactone. Plan/VTE VTE Prophylaxis Ordered?: Yes VS, I&O, 24H, Fishbone Vital Signs/I&O Vital Signs Date Time Temp Pulse Resp B/P (MAP) Pulse Ox O2 Delivery O2 Flow Rate FiO2 04/30/18 12:30 66 134/60 (84) 73 128/59 (82) 64 164/70 (101) 04/30/18 05:22 98.7 18 94 04/29/18 18:15 Room Air I&O- Last 24 Hours up to 6 AM 04/30/18 06:00 Intake Total 1700 ml Output Total 900 ml Balance 800 ml Laboratory Data 24H LABS Laboratory Tests 2 04/29/18 15:14: Immature Granulocyte % (Auto) 0.4, White Blood Count 13.4H, Red Blood Count 5.19, Hemoglobin 13.1, Hematocrit 39.8, Mean Corpuscular Volume 76.7L, Mean Corpuscular Hemoglobin 25.2L, Mean Corpuscular Hemoglobin Concent 32.9, Red Cell Distribution Width 18.6H, Platelet Count 180, Neutrophils (%) (Auto) 79.7H, Lymphocytes (%) (Auto) 10.6L, Monocytes (%) (Auto) 7.1H, Eosinophils (%) (Auto) 1.9, Basophils (%) (Auto) 0.3, Neutrophils # (Auto) 10.7H, Lymphocytes # (Auto) 1.4L, Monocytes # (Auto) 1.0H, Eosinophils # (Auto) 0.3, Basophils # (Auto) 0.0, Nucleated Red Blood Cells % (auto) 0.0, Anion Gap 16, Glomerular Filtration Rate 10.5L, Estimated Mean Plasma Glucose 214H, Hemoglobin A1c 9.1, Blood Urea Nitrogen 132H, Creatinine 4.33H, Sodium Level 132L, Potassium Level 2.6*L, Chloride Level 91L, Carbon Dioxide Level 25, Calcium Level 8.2L, Phosphorus Level 6.6H, Aspartate Amino Transf (AST/SGOT) 26, Alanine Aminotransferase (ALT/SGPT) 31, Alkaline Phosphatase 78, Total Bilirubin 0.5, Total Protein 7.6, Albumin 3.7, Magnesium Level 2.7H, Total Creatine Kinase 46, Creatine Kinase MB < 1.0, Creatine Kinase MB Relative Index 2.17, Troponin I < 0.02, [id number]-Type Natriuretic Peptide 621H, Albumin/Globulin Ratio 0.95L 04/29/18 15:57: Urine Color STRAW, Urine Appearance CLEAR, Urine pH 6.0, Urine Specific [place] 1.006, Urine Protein 1+H, Urine Glucose (UA) NEGATIVE, Urine Ketones NEGATIVE, Urine Blood NEGATIVE, Urine Nitrite NEGATIVE, Urine Bilirubin NEGATIVE, Urine Urobilinogen 0.2, Urine Leukocyte Esterase TRACEH, Urine WBC (Auto) 7H, Urine RBC (Auto) 2, Urine Hyaline Casts (Auto) 0, Urine Bacteria (Auto) 1+H, Urine Squamous Epithelial Cells 0, Urine Sperm (Auto) , Influenza Type A (RT-PCR) NEGATIVE, Influenza Type B (RT-PCR) NEGATIVE 04/29/18 17:18: Lactic Acid Level 0.9 04/29/18 17:41: Anion Gap 15, Glomerular Filtration Rate 10.8L, Blood Urea Nitrogen 130H, Creatinine 4.21H, Sodium Level 134L, Potassium Level 2.7*L, Chloride Level 93L, Carbon Dioxide Level 26, Calcium Level 8.4L 04/30/18 06:24: Immature Granulocyte % (Auto) 0.3, White Blood Count 12.0H, Red Blood Count 4.68, Hemoglobin 11.7L, Hematocrit 36.2, Mean Corpuscular Volume 77.4L, Mean Corpuscular Hemoglobin 25.0L, Mean Corpuscular Hemoglobin Concent 32.3, Red Cell Distribution Width 18.8H, Platelet Count 152, Neutrophils (%) (Auto) 64.4, Lymphocytes (%) (Auto) 18.8L, Monocytes (%) (Auto) 11.8H, Eosinophils (%) (Auto) 4.3H, Basophils (%) (Auto) 0.4, Neutrophils # (Auto) 7.7, Lymphocytes # (Auto) 2.3, Monocytes # (Auto) 1.4H, Eosinophils # (Auto) 0.5, Basophils # (Auto) 0.1, Nucleated Red Blood Cells % (auto) 0.0 04/30/18 06:26: Anion Gap 14, Glomerular Filtration Rate 12.2L, Blood Urea Nitrogen 117H, Creatinine 3.80H, Sodium Level 140, Potassium Level 3.2L, Chloride Level 104, Carbon Dioxide Level 22, Calcium Level 7.5L, Aspartate Amino Transf (AST/SGOT) 24, Alanine Aminotransferase (ALT/SGPT) 28, Alkaline Phosphatase 65, Total Bilirubin 0.3, Total Protein 6.8, Albumin 3.2, Magnesium Level 2.6H, Albumin/Globulin Ratio 0.89L 04/30/18 12:04: Bedside Glucose (Misc Panel) 300H CBC/BMP Laboratory Tests 04/29/18 15:14 Red Blood Count 5.19, Mean Corpuscular Volume 76.7 L, Mean Corpuscular Hemoglobi n 25.2 L, Mean Corpuscular Hemoglobin Concent 32.9, Red Cell Distribution Width 18.6 H, Neutrophils (%) (Auto) 79.7 H, Lymphocytes (%) (Auto) 10.6 L, Monocytes (%) (Auto) 7.1 H, Eosinophils (%) (Auto) 1.9, Basophils (%) (Auto) 0.3, Neutrophils # (Auto) 10.7 H, Lymphocytes # (Auto) 1.4 L, Monocytes # (Auto) 1.0 H, Eosinophils # (Auto) 0.3, Basophils # (Auto) 0.0, Calcium Level 8.2 L, Phosphorus Level 6.6 H, Aspartate Amino Transf (AST/SGOT) 26, Alanine Aminotransferase (ALT/SGPT) 31, Alkaline Phosphatase 78, Total Bilirubin 0.5, Total Protein 7.6, Albumin 3.7 04/29/18 17:41 Calcium Level 8.4 L 04/30/18 06:24 Red Blood Count 4.68, Mean Corpuscular Volume 77.4 L, Mean Corpuscular Hemoglobin 25.0 L, Mean Corpuscular Hemoglobin Concent 32.3, Red Cell Distribution Width 18.8 H, Neutrophils (%) (Auto) 64.4, Lymphocytes (%) (Auto) 18.8 L, Monocytes (%) (Auto) 11.8 H, Eosinophils (%) (Auto) 4.3 H, Basophils (%) (Auto) 0.4, Neutrophils # (Auto) 7.7, Lymphocytes # (Auto) 2.3, Monocytes # (Auto) 1.4 H, Eosinophils # (Auto) 0.5, Basophils # (Auto) 0.1 04/30/18 06:26 Calcium Level 7.5 L, Aspartate Amino Transf (AST/SGOT) 24, Alanine Aminotransferase (ALT/SGPT) 28, Alkaline Phosphatase 65, Total Bilirubin 0.3, Total Protein 6.8, Albumin 3.2 Microbiology Microbiology 04/29/18 Urine Culture - Final, Complete GME ATTESTATION GME ATTESTATION My faculty preceptor for this patient encounter was physically present during the encounter and was fully available. All aspects of the patient interview, examination, medical decision making process, and medical care plan development were reviewed and approved by the faculty preceptor. The faculty preceptor is aware and concurs with the plan as stated in the body of this note and will attest to such by his/her cosignature. BRETT FERGUSON DO Apr 30, 2018 13:45
[2018-04-30] MEDS ORDERED: ONDANSETRON 4 MG TAB (S0181) PO PRN (15:30)
[2018-04-30] MEDS: HEPARIN SOD (PORCINE) 5000 UNITS/ML VIAL SQ SCH (20:48)
[2018-04-30] MEDS ORDERED: CARVedilol 12.5 MG TAB PO SCH (21:00)
[2018-05-01] MEDS: LEVOTHYROXINE 50MCG TABLET (0.05MG) PO SCH (05:25)
[2018-05-01] MEDS: HEPARIN SOD (PORCINE) 5000 UNITS/ML VIAL SQ SCH ×3 (05:26→20:40)
[2018-05-01 05:30] VITALS: BP 133/63
[2018-05-01 07:06] LABS: HEMATOCRIT 34.5 % (36.0-47.0); HEMOGLOBIN 10.8 g/dl (12.0-15.5); MEAN CORPUSCULAR HEMOGLOBIN 25.3 pg (27.0-33.0); MEAN CORPUSCULAR HGB CONC 31.3 g/dl (32.0-36.5); MEAN CORPUSCULAR VOLUME 80.8 fl (80.0-96.0); PLATELET COUNT, AUTOMATED 130 10^3/uL (150-450); RED BLOOD COUNT 4.27 10^6/uL (4.00-5.40); WHITE BLOOD COUNT 10.2 10^3/uL (4.0-10.0)
[2018-05-01 07:30] LABS: CALCIUM LEVEL 7.6 MG/DL (8.8-10.2); CREATININE FOR GFR 3.57 MG/DL (0.55-1.30); GLOMERULAR FILTRATION RATE 13.1 (>39); POTASSIUM SERUM 2.8 MEQ/L (3.5-5.1)
[2018-05-01] MEDS ORDERED: POTASSIUM CHLORIDE 10 MEQ SR TABLET PO ONE ×2 (08:15→10:30)
[2018-05-01] MEDS: HumaLOG INSULIN (NovoLOG) PER UNIT SC SCH ×3 (08:31→17:17)
[2018-05-01] MEDS: ROSUVASTATIN 10 MG TAB (CRESTOR) PO SCH (08:31)
[2018-05-01] MEDS: FERROUS SULFATE 325MG TAB PO SCH ×2 (08:31→20:41)
[2018-05-01] MEDS: ASPIRIN ENTERIC 325 MG TAB PO SCH (08:31)
[2018-05-01] MEDS: MULTIVITAMINS/MINERALS THERAP 1 TAB PO SCH (08:31)
[2018-05-01] MEDS: CARVedilol 12.5 MG TAB PO SCH ×2 (08:32→20:41)
--- NOTE | 2018-05-01 09:14 | IPNPDOC ---
Subjective Date Seen The patient was seen on 05/01/18. Subjective Chief Complaint/HPI Feels well. Eating and drinking well. NO diarrhea Pulmonary: Denies: Dyspnea, Cough Cardiovascular: Denies: Chest Pain, Palpitations Gastrointestinal: Denies: Nausea, Vomiting, Abdominal Pain, Diarrhea, Constipation Objective Physical Examination General Exam: Positive: Alert, No Acute Distress ENT Exam: Positive: Mucous membr. moist/pink Chest Exam: Positive: Clear to auscultation, Normal air movement; Negative: Rales, Rhonchi, Wheezing Heart Exam: Positive: Rate Normal, Normal S1, Normal S2; Negative: Murmurs, Rubs Abdomen Exam: Positive: Normal bowel sounds, Soft (obese abdomen); Negative: Tenderness, Hepatospenomegaly Skin Exam: Positive: Nl turgor and temperature Psych Exam: Positive: Mood NL Assessment /Plan Problems (1) Acute kidney injury superimposed on chronic kidney disease Status: Acute Response to Treatment: Improving Problem Text: 05/01 - Renal function is improving. (Cre = 3.57) Not quite at baseline yet. IVF stopped after 2 liters. Taking pos well. Diuretics remain on hold. Replace K+ further today and consult Dr. Garnett regarding ? start of hemodialysis. (baseline Cr is ~3.0) (2) Orthostatic hypotension Status: Resolved Problem Text: 05/01 D/C orthostatic VS order (3) Hypokalemia Status: Acute Response to Treatment: Improving Problem Text: 05/01 - Edger Feeder further potassium today. (4) UTI (urinary tract infection) Status: Resolved Problem Text: Patient had mildly positive UA, but did not have any symptoms. Urine culture<100,000 CFU. Discontinuing Ciprofloxacin. (5) CKD (chronic kidney disease), stage V Status: Chronic (6) Diabetes Status: Chronic Response to Treatment: Stable Problem Text: Normally on Glipizide 10, Detemir 44/8, Saxagliptin. Restart Detemir at adjusted dose. Cont SSI (7) Essential (primary) hypertension Status: Chronic Response to Treatment: Stable (8) Hypothyroidism Status: Chronic Response to Treatment: Stable Problem Text: on Levothyroxine (9) CAD S/P percutaneous coronary angioplasty Status: Chronic Response to Treatment: Stable Problem Text: Continue with home medications. (10) Ischemic cardiomyopathy Status: Chronic Response to Treatment: Stable Problem Text: 05/01 Holding diuretics for the time being. No sign of fluid overload currently. Renal function stil not back to baseline. cont to hold diuretics Plan/VTE VTE Prophylaxis Ordered?: Yes VS, I&O, 24H, Fishbone Vital Signs/I&O Vital Signs Date Time Temp Pulse Resp B/P (MAP) Pulse Ox O2 Delivery O2 Flow Rate FiO2 05/01/18 08:32 65 126/60 05/01/18 05:30 98.2 18 97 04/29/18 18:15 Room Air I&O- Last 24 Hours up to 6 AM 05/01/18 06:00 Intake Total 2440 ml Output Total 1400 ml Balance 1040 ml Laboratory Data 24H LABS Laboratory Tests 2 04/30/18 12:04: Bedside Glucose (Misc Panel) 300H 04/30/18 16:53: Bedside Glucose (Misc Panel) 275H 05/01/18 06:40: Nucleated Red Blood Cells % (auto) 0.0, Anion Gap 12, Glomerular Filtration Rate 13.1L, Blood Urea Nitrogen 96H, Creatinine 3.57H, Sodium Level 143, Potassium Level 2.8*L, Chloride Level 108H, Carbon Dioxide Level 23, Calcium Level 7.6L CBC/BMP Laboratory Tests 05/01/18 06:40 Red Blood Count 4.27, Mean Corpuscular Volume 80.8, Mean Corpuscular Hemoglobin 25.3 L, Mean Corpuscular Hemoglobin Concent 31.3 L, Red Cell Distribution Width 19.3 H, Calcium Level 7.6 L Microbiology Microbiology 04/29/18 Urine Culture - Final, Complete KARLI VALENCIA PA-C May 01, 2018 09:14 Kadeem De La Paz MD May 01, 2018 16:19
[2018-05-01] MEDS: LEVEMIR (INSULIN DETEMIR) 1 UNITS/0.01ML SC SCH ×2 (10:01→20:40)
[2018-05-01 13:15] LABS: CHOLESTEROL LEVEL 167 MG/DL (<200); CHOLESTEROL RISK RATIO 4.394 (<5); HDL CHOLESTEROL 38 MG/DL (>40); NON-HDL-C 129 MG/DL; TRIGLYCERIDES LEVEL 543 MG/DL (<150)
[2018-05-01 13:49] LABS: HEPATITIS B SURFACE ANTIBODY NEGATIVE (POSITIVE)
[2018-05-01 14:00] VITALS: BP 134/79
[2018-05-01 14:00] LABS: HEPATITIS B SURFACE ANTIGEN NEGATIVE (NEGATIVE)
[2018-05-01 14:28] LABS: HEPATITIS B CORE ANTIBODY IGM NEGATIVE (NEGATIVE); HEPATITIS C VIRUS ABY INDEX < 0.0 INDEX (<0.8)
--- NOTE | 2018-05-01 17:38 | CR ---
DATE OF CONSULTATION: 05/01/2018 REQUESTING PHYSICIAN: Dr. De La Paz REASON FOR CONSULTATION: Acute kidney injury in this patient with end stage renal disease, not yet on hemodialysis. HISTORY OF PRESENT ILLNESS: Theresa Eisenberg is a 77-year-old female, well known to me with a past medical history of coronary artery disease, status post stenting, ischemic cardiomyopathy with ejection fraction of about 30 to 35%, hypertension, insulin-dependent diabetes mellitus, chronic kidney disease stage V, not yet on dialysis, hypothyroidism, and other comorbid conditions mentioned below. The patient reports that she was in her usual state of health up until the past 3 or 4 days prior to admission when she started feeling generalized weakness and lightheadedness and dizziness upon standing. She denied any fevers, chills, nausea, vomiting, diarrhea. Of note, the patient has been requiring escalating diuretics over the past 6 months in view of chronic kidney disease stage V and systolic congestive heart failure (CHF). Over the winter, she had a pleural and pericardial effusions and her loop diuretic dose was subsequently increased and she was also started on a thiazide diuretic. When she presented to the emergency room, she was found to have orthostatic hypotension and worsening renal parameters. She was treated with IV fluid. Her diuretics were held and her hypokalemia was addressed. She symptomatically improved. PAST MEDICAL HISTORY AND PAST SURGICAL HISTORY: 1. Chronic kidney disease stage V, not yet on hemodialysis. Baseline creatinine of 3.0. 2. Ischemic cardiomyopathy. 3. Systolic congestive heart failure (CHF), ejection fraction of 30 to 35%. 4. Coronary artery disease, status post PCI. 5. History of pericardial effusion. 6. Insulin-dependent diabetes mellitus. 7. Hypertension. 8. Hypothyroidism. 9. Status post AV fistula creation in her arm. ALLERGIES: CODEINE. FAMILY HISTORY: No family history of end stage renal disease on dialysis. SOCIAL HISTORY: The patient lives at home. She denies tobacco, alcohol or illicit drugs. HOME MEDICATIONS: - torsemide 60 mg by mouth twice a day - hydrochlorothiazide 12.5 mg by mouth daily - aspirin 325 mg by mouth daily - calcitriol 0.25 mcg once a week - Coreg 37.5 mg by mouth twice a day - Zetia 10 mg by mouth daily - ferrous sulfate 325 mg by mouth twice a day - glipizide 10 mg by mouth daily - insulin - Synthroid 50 mcg by mouth daily - potassium 20 mEq by mouth daily - Onglyza 2.5 mg by mouth daily - rosuvastatin 20 mg by mouth daily REVIEW OF SYSTEMS: CONSTITUTIONAL: She denies fevers, chills. She reports that her fatigue has improved. EYES: She denies visual changes or blurring. ENT: Denies rhinorrhea, dysphagia, ear or nose issues. CARDIAC: She reports a history of coronary artery disease and history of pericardial effusion and congestive heart failure (CHF). LUNGS: She denies shortness of breath or dyspnea on exertion. GASTROINTESTINAL: Denies nausea, vomiting, diarrhea. GENITOURINARY: Denies dysuria, hematuria. ENDOCRINE: Reports hypothyroidism and insulin-dependent diabetes. HEMATOLOGIC: She denies long-term anticoagulant use. She reports anemia. NEUROLOGIC: She denies seizure or syncope. PSYCHIATRIC: She denies depression or anxiety. SKIN: She denies rashes or pruritus. PHYSICAL EXAMINATION: VITAL SIGNS: Temperature 98.2, pulse 66, respiratory rate 18, blood pressure 134/79, saturating 97% on room air. Intake yesterday was 2740, urine output yesterday was 1900. Weight on the bed scale today is 69.7 kg. GENERAL: The patient is seen sitting up in bed, elderly female, appears younger than her stated age, smiling, in no acute distress. Extraocular muscles are intact. Tongue is moist. NECK: Supple. Jugular veins are not elevated. LUNGS: Clear to auscultation bilaterally. No crackles, rub or wheeze. CARDIAC: S1, S2. Regular rate and rhythm. ABDOMEN: Soft. There are bowel sounds. There is no organomegaly. EXTREMITIES: Negative for edema, clubbing or cyanosis. The upper extremity shows the patent fistula with thrill and bruit. SKIN: Shows normal turgor and temperature. NEUROLOGIC: No focal deficits. She is oriented, interactive and conversational. LABORATORIES: Sodium 143, potassium 2.8, bicarbonate 23, BUN 96, creatinine 3.5. Hemoglobin 10.8, platelets 130. Chest x-ray on 04/29/2018 showed sharp angles and clear lungs. INPATIENT MEDICATIONS: - aspirin 325 mg by mouth daily - carvedilol 37.5 mg by mouth twice a day - Zetia 10 mg by mouth at night - ferrous sulfate 325 mg by mouth twice a day - heparin 5000 units subcutaneously every 8 hours - insulin - Synthroid 50 mcg by mouth daily - multivitamin one tablet by mouth daily - potassium 80 mEq by mouth today - rosuvastatin 20 mg by mouth daily PROBLEMS: 1. Chronic kidney disease stage V, not yet on hemodialysis in this patient who was admitted with worsening renal function and orthostatic hypotension related to overdiuresis. Her diuretics were held on admission, she has received IV fluids for the past couple of days. She has received aggressive potassium supplementation. Her renal function is improving. Her baseline creatinine is in the low 3s. She has a patent and mature fistula. She is agreeable for hemodialysis initiation. We will plan for her first treatment to be in the afternoon of 05/02 and she will need case management for outpatient hemodialysis followup. Would continue to hold the diuretics at this time. 2. Orthostatic hypotension on admission. It was secondary to overdiuresis. She has symptomatically improved with IV fluids and with holding of her diuretics. She continues on her home Coreg. 3. Hypokalemia. It is due to combination use of loop and Dyazide diuretics. She is getting potassium supplementation 80 mEq of oral potassium chloride is ordered for today. Her magnesium levels are acceptable. 4. Anemia related to chronic renal failure. Hemoglobin is 10.8, which is acceptable. Her iron studies in April indicated transferrin saturation of 20%. She will receive Venofer with hemodialysis. There is no need for erythropoietin stimulating agent at present. 5. Systolic congestive heart failure (CHF). Ejection fraction of about 35%. Volume status is compensated. Diuretics are on hold. She has been discontinued off of IV fluids. We will plan for a gentle first dialysis treatment on 05/02/2018, and we will deescalate her home diuretics going forward. DISPOSITION: The patient will start chronic hemodialysis. Case management is being involved for outpatient hemodialysis set up. Thank you for involving me in the care of Ms. Eisenberg. I will be happy to follow her along with you.
[2018-05-01 20:00] VITALS: BP 135/63
[2018-05-01] MEDS ORDERED: EZETIMIBE 10 MG TAB (ZETIA) PO SCH (21:00)
[2018-05-02 06:00] VITALS: BP 144/70
[2018-05-02 06:45] VITALS: BP 144/70
[2018-05-02] MEDS: HEPARIN SOD (PORCINE) 5000 UNITS/ML VIAL SQ SCH (06:45)
[2018-05-02] MEDS: CARVedilol 12.5 MG TAB PO SCH (06:45)
[2018-05-02] MEDS: MULTIVITAMINS/MINERALS THERAP 1 TAB PO SCH (06:45)
[2018-05-02] MEDS: FERROUS SULFATE 325MG TAB PO SCH (06:45)
[2018-05-02] MEDS: LEVOTHYROXINE 50MCG TABLET (0.05MG) PO SCH (06:46)
[2018-05-02] MEDS: ASPIRIN ENTERIC 325 MG TAB PO SCH (06:46)
[2018-05-02] MEDS: ROSUVASTATIN 10 MG TAB (CRESTOR) PO SCH (06:46)
[2018-05-02] MEDS: HumaLOG INSULIN (NovoLOG) PER UNIT SC SCH (07:30)
[2018-05-02 08:03] LABS: HEMATOCRIT 37.3 % (36.0-47.0); HEMOGLOBIN 11.5 g/dl (12.0-15.5); MEAN CORPUSCULAR HEMOGLOBIN 25.2 pg (27.0-33.0); MEAN CORPUSCULAR HGB CONC 30.8 g/dl (32.0-36.5); MEAN CORPUSCULAR VOLUME 81.8 fl (80.0-96.0); PLATELET COUNT, AUTOMATED 138 10^3/uL (150-450); RED BLOOD COUNT 4.56 10^6/uL (4.00-5.40); WHITE BLOOD COUNT 9.9 10^3/uL (4.0-10.0)
[2018-05-02 08:26] LABS: CALCIUM LEVEL 7.8 MG/DL (8.8-10.2); CREATININE FOR GFR 3.33 MG/DL (0.55-1.30); GLOMERULAR FILTRATION RATE 14.2 (>39); POTASSIUM SERUM 3.8 MEQ/L (3.5-5.1)
[2018-05-02] MEDS ORDERED: LEVEMIR (INSULIN DETEMIR) 1 UNITS/0.01ML SC SCH (09:00)
[2018-05-02] MEDS ORDERED: TORS10TA3 PO (11:23)
[2018-05-02] MEDS ORDERED: SPIR-10 PO (11:23)
--- NOTE | 2018-05-02 11:45 | DS.PDOC ---
Discharge Summary General Date of Admission Apr 30, 2018 at 17:00 Date of Discharge 05/02/2018 Primary Care Physician: CODY MCKEON DO Attending Physician: Brett De La Paz MD Discharge Summary PROCEDURES PERFORMED DURING STAY: [None]. ADMITTING/DISCHARGE DIAGNOSES: #. Chronic kidney disease stage V, not yet on hemodialysis. #. Ischemic cardiomyopathy. #. Systolic congestive heart failure (CHF) with EF of 30-35% #. Coronary artery disease, s/p PCI. #. Hx of pericardial effusion. #. Insulin-dependent diabetes mellitus. #. Hypertension. #. Hypothyroidism. #. S/p AV fistula creation in her arm. COMPLICATIONS/CHIEF COMPLAINT: SHAUN, Orthostatic Hypotension. HISTORY OF PRESENT ILLNESS: A 77-year-old female with a past medical history of hypertension, diabetes, chronic kidney disease V, coronary artery disease, status post percutaneous coronary intervention (PCI), presents to the emergency room with generalized weakness and bilateral upper extremity heaviness for the past 3 days. She denies any nausea, vomiting, or diarrhea. Her appetite has been unchanged. She denies any subjective feeling of fever, aches, or chills. She has no dysuria, frequency, or urgency of urination, and she has been taking all of her medications as prescribed. She does have an associated vertigo in the last 3 days with the symptoms of generalized weakness. In the emergency room (ER), she was found to be orthostatic and was given a 500 mL IV bolus of normal saline. She was also found to be subsequently hypokalemia and potassium chloride initiation has been started. She will be admitted for further management. HOSPITAL COURSE: Patient's diuretic medications were held on admission due to electrolyte status and she was given gentle hydration overnight. She showed improvement the following morning both clinically and in her lab work. Orthostatics also improved. Her urine culture came back negative for UTI (<100k CFU) so ciprofloxacin was discontinued. While her creatinine did improve, aggressive potassium replacement therapy did not keep her serum potassium at baseline. Dr. Garnett was consulted on day 2 and initially a plan was made for hemodialysis the following day. However on day of discharge the patient required more time to consider whether she wanted this and so this was not done and she was instructed to follow up within a week at the nephrology office. DISCHARGE MEDICATIONS: Please see below. ALLERGIES: Please see below. PHYSICAL EXAMINATION ON DISCHARGE: VITAL SIGNS: Please see below. GENERAL: Alert, oriented, no acute distress. Resting comfortably in bed. HEENT: Normocephalic, atraumatic. EOMI. NECK: Supple. No JVD present. CARDIOVASCULAR EXAMINATION: RRR. Normal S1 and S2. No murmurs, gallops, rubs. RESPIRATORY EXAMINATION: CTAB with full breath sounds. No wheezes, crackles, rhonchi. ABDOMINAL EXAMINATION: Soft, obese, nontender, nondistended. Bowel sounds present. EXTREMITIES: No edema, clubbing, or cyanosis SKIN: No rashes or skin lesions NEUROLOGICAL EXAMINATION: Normal speech no focal deficits. Cranial nerves 3-12 g rossly intact. PSYCHIATRIC EXAMINATION: Normal mood and mentation. LABORATORY DATA: Please see below. IMAGIN04/29/18 CXR: Pulmonary vascular cephalization and mild cardiomegaly. Otherwise no acute disease. PROGNOSIS: fair ACTIVITY: [As tolerated]. DIET: As tolerated DISCHARGE PLAN: home DISPOSITION: Discharge home . DISCHARGE INSTRUCTIONS: 1. Please follow up with Dr. Mckeon outpatient within a week 2. Please follow up with Dr. Cash Garnett within one week 3. Please stop taking HCTZ and start taking 60 mg/day torsemide and 25 mg/day of spironolactone DISCHARGE CONDITION: [Stable]. TIME SPENT ON DISCHARGE: Greater than 30 minutes. Vital Signs/I&Os Vital Signs Date Time Temp Pulse Resp B/P (MAP) Pulse Ox O2 Delivery O2 Flow Rate FiO2 05/02/18 06:45 75 144/70 05/02/18 06:00 97.4 18 98 04/29/18 18:15 Room Air I&O- Last 24 Hours up to 6 AM 05/02/18 06:00 Intake Total 2260 ml Output Total 1350 ml Balance 910 ml Laboratory Data Labs 24H Laboratory Tests 2 05/01/18 12:12: Triglycerides Level 543H, LDL Cholesterol , Total Cholesterol 167, Non-HDL Cholesterol (LDL + VLDL) 129, Total HDL Cholesterol 38L, Cholesterol/HDL Ratio 4.394, Hepatitis B Surface Antigen NEGATIVE, Hepatitis B Surface Antibody NEGATIVE, Hepatitis B Core IgM Antibody NEGATIVE, Hepatitis C Antibody Index < 0.0 05/01/18 17:07: Bedside Glucose (Misc Panel) 222H 05/01/18 19:43: Bedside Glucose (Misc Panel) 210H 05/02/18 04:17: Bedside Glucose (Misc Panel) 57L 05/02/18 04:57: Bedside Glucose (Misc Panel) 89 05/02/18 05:25: Bedside Glucose (Misc Panel) 135H 05/02/18 07:11: Nucleated Red Blood Cells % (auto) 0.0, Anion Gap 10, Glomerular Filtration Rate 14.2L, Blood Urea Nitrogen 79H, Creatinine 3.33H, Sodium Level 143, Potassium Level 3.8#, Chloride Level 109H, Carbon Dioxide Level 24, Calcium Level 7.8L CBC/BMP Laboratory Tests 05/02/18 07:11 Red Blood Count 4.56, Mean Corpuscular Volume 81.8, Mean Corpuscular Hemoglobin 25.2 L, Mean Corpuscular Hemoglobin Concent 30.8 L, Red Cell Distribution Width 19.6 H, Calcium Level 7.8 L FSBS Laboratory Tests Test 05/01/18 17:07 05/01/18 19:43 05/02/18 04:17 05/02/18 04:57 Range/Units Bedside Glucose (Misc Panel) 222 210 57 89 83-110 MG/DL Test 05/02/18 05:25 Range/Units Bedside Glucose (Misc Panel) 135 83-110 MG/DL Microbiology Microbiology 04/29/18 Urine Culture - Final, Complete Discharge Medications Scheduled Aspirin (Aspirin) 325 Mg Tab, 325 MG PO DAILY, (Reported) Calcitriol (Calcitriol) 0.25 Mcg Cap, 0.25 MCG PO 1XWK, (Reported) SUNDAY Carvedilol (Carvedilol) 25 Mg Tab, 25 MG PO BID, (Reported) 37.5MG TOTAL BID @ 0800, 1700 Carvedilol (Carvedilol) 12.5 Mg Tab, 12.5 MG PO BID, (Reported) 37.5MG TOTAL BID @ 0800, 1700 Ezetimibe (Ezetimibe) 10 Mg Tab, 10 MG PO DAILY, (Reported) Ferrous Sulfate (Ferrous Sulfate) 325 Mg Tab, 325 MG PO BID, (Reported) Glipizide (Glipizide) 10 Mg Tab, 10 MG PO DAILY, (Reported) Insulin Detemir (Levemir Flextouch) 100 Unit/Ml Inj, 44 UNIT SC QAM, (Reported) Insulin Detemir (Levemir Flextouch) 100 Unit/Ml Inj, 8 UNIT SC QHS, (Reported) Levothyroxine Sodium (Synthroid) 50 Mcg Tab, 50 MCG PO DAILY, (Reported) Multivitamins *[facility] STOCKED* (Thera M Plus *[facility] STOCKED*) 1 Tab Tab, 1 TAB PO DAILY, (Reported) Potassium Chloride (Potassium Chloride ER) 20 Meq Tab, 20 MEQ PO DAILY, (Reported) Rosuvastatin Calcium (Rosuvastatin Calcium) 20 Mg Tab, 20 MG PO DAILY, (Reported) Saxagliptin Hydrochloride (Onglyza) 2.5 Mg Tab, 2.5 MG PO DAILY, (Reported) Spironolactone (Spironolactone) 25 Mg Tab, 1 TAB PO DAILY Torsemide (Torsemide) 10 Mg Tab, 3 TAB PO BID Please take 3 tablets in the morning and 3 tablets in the evening Allergies Coded Allergies: Codeine (Verified Adverse Reaction, Intermediate, HALLUCINATIONS, 04/29/18) GME ATTESTATION GME ATTESTATION My faculty preceptor for this patient encounter was physically present during the encounter and was fully available. All aspects of the patient interview, examination, medical decision making process, and medical care plan development were reviewed and approved by the faculty preceptor. The faculty preceptor is aware and concurs with the plan as stated in the body of this note and will attest to such by his/her cosignature. BRETT FERGUSON DO May 02, 2018 11:45
--- NOTE | 2018-05-02 14:02 | IPN ---
DATE OF SERVICE: 05/02/2018 SUBJECTIVE: The patient is seen and examined this morning at the bedside, reports that she feels well, she wants to go home. She has trouble sleeping in the hospital. She reports she has been up and walking around. Denies dyspnea on exertion and denies any lightheadedness or dizziness. We had a discussion regarding need for close outpatient followup for timely dialysis initiation. VITAL SIGNS: Temperature 97.4, pulse 75, respiratory rate 18, blood pressure 144/70, saturating 98% on room air. Intake yesterday was 2320. Urine output yesterday was 1750. Net positive 570. Weight in the bed scale today is 75.5 kg which is significantly different from prior and likely inaccurate. PHYSICAL EXAMINATION: GENERAL: The patient is seen lying down in bed, awake, alert, oriented, comfortable, in no acute distress. HEENT: Extraocular muscles are intact. Tongue is moist. NECK: Supple, jugular veins are not elevated. CARDIAC: S1, S2, regular rate and rhythm. No peripheral edema. LUNGS: Clear to auscultation bilaterally. No crackle, rale, or wheeze. ABDOMEN: Soft, there are bowel sounds, there is no organomegaly. EXTREMITIES: Negative for edema, clubbing, or cyanosis. The right upper extremity has a patent fistula with thrill and bruit. SKIN: Normal turgor and temperature. NEUROLOGIC: No focal deficits. She is oriented, interactive, and conversational. LABORATORY DATA: White count 9.9, hemoglobin 11.5, sodium 143, potassium 3.8, bicarbonate 24, BUN 79, creatinine 3.3. INPATIENT MEDICATIONS: Reviewed and some was adjusted per the primary team. No other medication changes seen. PROBLEMS: 1. Chronic kidney disease (CKD) stage 5, not yet on hemodialysis. Patient's renal function has recovered to her usual baseline. Her discharge diuretics can be torsemide 30 mg by mouth twice a day and spironolactone 25 mg daily. She will be discontinued off of hydrochlorothiazide. She needs to followup closely as an outpatient for timely dialysis initiation. We discussed starting dialysis while she was in the hospital, but she would like to go home as start the process from there. She has a patent and mature fistula. 2. Hypertension. Blood pressures are accetable. She continues on carvedilol and she will resume a lower dose of torsemide with the addition of spironolactone. 3. Hypokalemia. It is due to the combination loop and thiazide diuretics. She will not be on a potassium sparing diuretic instead she will continue potassium supplementation 20 mEq daily. 4. Anemia related to chronic renal failure. Hemoglobin is at target and patient continues with oral iron supplementation. There is no need for erythropoietin stimulating agent at present. 5. Systolic congestive heart failure. Ejection fraction of about 35%. Volume status is compensated. Discharge diuretics have been adjusted. DISPOSITION: Okay to discharge on torsemide 30 mg by mouth twice a day and spirolactone 25 mg daily with potassium 20 mEq by mouth daily and followup in the nephrology office within 1 week.
== END 2018-05-02 12:17 | disposition home or self-care (01) | DRG 312 ==
LOC: M ED 14:29 → M ED INP 17:20 → M MS4PR 18:50 → INTOOBSV 04-30 17:00 → OBSVTOIN 04-30 17:00 → M MS4PR 05-02 04:34
PROVIDERS: ADMIT Internal Medicine; ATTEND Family Medicine
DX: I95.1 Orthostatic hypotension (principal); I13.2 Hypertensive heart and chronic kidney disease with heart failure and with stage 5 chronic kidney disease, or end stage renal disease; N39.0 Urinary tract infection, site not specified; I50.22 Chronic systolic (congestive) heart failure; N18.5 Chronic kidney disease, stage 5; N17.9 Acute kidney failure, unspecified; T50.1X5A Adverse effect of loop [high-ceiling] diuretics, initial encounter; I25.10 Atherosclerotic heart disease of native coronary artery without angina pectoris; E11.22 Type 2 diabetes mellitus with diabetic chronic kidney disease; E87.6 Hypokalemia; E03.9 Hypothyroidism, unspecified; D63.1 Anemia in chronic kidney disease; I25.5 Ischemic cardiomyopathy; Z88.5 Allergy status to narcotic agent; Z79.82 Long term (current) use of aspirin; Z79.4 Long term (current) use of insulin; Z79.899 Other long term (current) drug therapy; Z95.1 Presence of aortocoronary bypass graft

== ENCOUNTER → 2018-05-09 | Outpatient (REF) | payer MEDICARE, MEDICAID ==
[~2018-05-09] MED LIST changes: +ASPI-222 PO; +CARV12.5 PO; +FERR325T3 PO; +GLIP10TA6 PO; +HYDR12CA PO; +ROSU20TA4 PO; +SPIR-10 PO; +TORS10TA3 PO; +VITMTA PO
[2018-05-09 15:07] LABS: FREE T4 1.14 NG/DL (0.76-1.46); THYROID STIMULATING HORMONE 2.81 uIU/ML (0.358-3.740)
== END ==
LOC: M LAB REF 13:51
PROVIDERS: ATTEND Internal Medicine Nephrology
DX: N18.4 Chronic kidney disease, stage 4 (severe) (principal); D63.1 Anemia in chronic kidney disease; E03.9 Hypothyroidism, unspecified

== ENCOUNTER → 2018-06-14 | Outpatient (CLI) | payer MEDICARE, MEDICAID ==
[~2018-06-14] MED LIST changes: -/GLYB5TA OR; -/LABE20TA OR; +BUPIVACAINE HCL 0.5% 10 ML VIAL As Ordered ONE; +GLYB1TAB29 OR; +HYDR-3715 PO; +ISOVUE-300 61% 100ML VIAL (Q9967) As Ordered ONE; +LABE1TAB11 OR; +LIDOCAINE 2% MDV 20 ML VIAL As Ordered ONE; +MIDAZOLAM INJ 2 MG/2 ML VIAL (J2250) As Ordered ONE; -NORCOTAB PO; +ONDANSETRON 4 MG ORAL DISINTEGRATING TAB (Q0162 PER 1MG) As Ordered ONE; +fentaNYL 100 MCG/2 ML INJECTION (J3010) As Ordered ONE
--- NOTE | 2018-07-03 08:34 | REPIR ---
DATE OF PROCEDURE: 06/14/2018 ATTENDING SURGEON: Dr. Osmin Avendaño ASSISTANTS: Kiera Huffman and Milka Milligan PREOPERATIVE DIAGNOSES: End-stage renal disease, dysfunctional right brachiocephalic arteriovenous fistula. POSTOPERATIVE DIAGNOSES: End-stage renal disease, dysfunctional right brachiocephalic arteriovenous fistula. PROCEDURE: Right brachiocephalic arteriovenous fistulogram, ultrasound guided cannulation with placement of three sheaths and three cannulations of the right brachiocephalic arteriovenous fistula, right brachial artery angioplasty with 10 x 100 balloon, right cephalic vein angioplasty of 7 x 100 balloon, right cephalic vein angioplasty with 8 x 200 balloon. INDICATION: The patient is a 77-year-old female with a right brachiocephalic arteriovenous fistula which has dysfunction and has been unable to be used successfully for hemodialysis. The patient will undergo a fistulogram with possible angioplasty stent and/or atherectomy. Risks, benefits and alternative options were discussed with the patient. ANESTHESIA: Local with sedation with 2 mg Versed, 100 mcg of fentanyl and 6 mL of 2% lidocaine mixed with 0.5% Marcaine. FLUORO TIME: 2.3 minutes. CONTRAST: 7 mL of [id number]. SEDATION TIME: From 8:42 a.m. to 9:17 a.m. for a total of 35 minutes. PROCEDURE: The patient was taken to the angiography suite, placed supine on the angiography room table and then prepped and draped in a standard surgical fashion. The right brachiocephalic arteriovenous fistula was cannulated and directed towards the venous outflow as well as the arteriovenous anastomosis. A fistulogram showed stenosis in the cephalic vein in the middle arm as well as at the arteriovenous anastomosis. The arteriovenous anastomosis underwent angioplasty with a 10 x 100 balloon. The cephalic vein underwent angioplasty with a 8 x 200 balloon. A completion fistulogram showed resolution showed resolution of the stenosis with improved and excellent flow through the arteriovenous fistula and sheaths were removed and 2-0 Prolene sutures placed at the puncture sites for hemostasis. Dressings were then applied. The patient tolerated procedure well. All instrument, sponge, and needle counts were correct at the end he was of the case. There were no complications. Dr. Avendaño was present for and directed the entire case. The patient was transferred to the holding and subsequently discharged in stable condition. The fistula was stable for use for access.
== END | disposition home or self-care (01) ==
LOC: M IRPRO 08:04
PROVIDERS: ATTEND Surgery Vascular Surgery
DX: T82.858A Stenosis of other vascular prosthetic devices, implants and grafts, initial encounter (principal); N18.6 End stage renal disease; Z99.2 Dependence on renal dialysis
CPT/HCPCS: 36902; C1725; C1769; C1887; C1894; J2250; J3010; Q0162; Q9967

== ENCOUNTER 2018-11-12 00:13 | Observation (INO) | payer MEDICARE, MEDICAID ==
[~2018-11-12] VITALS: Ht 152.4 cm; Wt 76.5 kg
[~2018-11-12 00:13] MED LIST changes: -ASPI-222 PO; +ASPI-527 PO; -BUPIVACAINE HCL 0.5% 10 ML VIAL As Ordered ONE; -EZET10TA PO; +EZET10TA21 PO; -ISOVUE-300 61% 100ML VIAL (Q9967) As Ordered ONE; -LIDOCAINE 2% MDV 20 ML VIAL As Ordered ONE; -MIDAZOLAM INJ 2 MG/2 ML VIAL (J2250) As Ordered ONE; -ONDANSETRON 4 MG ORAL DISINTEGRATING TAB (Q0162 PER 1MG) As Ordered ONE; -ROSU20TA4 PO; +ROSU20TA5 PO; -fentaNYL 100 MCG/2 ML INJECTION (J3010) As Ordered ONE
[2018-11-12 03:00] LABS: BASO % 0.3 % (0.0-1.0); EOS # 0.4 10^3/uL (0.0-0.5); EOS % 3.1 % (0.0-3.0); HEMATOCRIT 37.2 % (36.0-47.0); HEMOGLOBIN 11.8 g/dl (12.0-15.5); LYMPH # 1.7 10^3/uL (1.5-5.0); LYMPH % 12.3 % (24.0-44.0); MEAN CORPUSCULAR HEMOGLOBIN 29.9 pg (27.0-33.0); MEAN CORPUSCULAR HGB CONC 31.7 g/dl (32.0-36.5); MEAN CORPUSCULAR VOLUME 94.2 fl (80.0-96.0); MONO # 1.2 10^3/uL (0.0-0.8); MONO % 8.2 % (0.0-5.0); NEUTROPHILS # 10.7 10^3/uL (1.5-8.5); NEUTROPHILS % 75.7 % (36.0-66.0); PLATELET COUNT, AUTOMATED 156 10^3/uL (150-450); RED BLOOD COUNT 3.95 10^6/uL (4.00-5.40); WHITE BLOOD COUNT 14.1 10^3/uL (4.0-10.0)
[2018-11-12] MEDS ORDERED: VELP5CHW PO (03:07)
[2018-11-12] MEDS ORDERED: SPIR-10 PO (03:07)
[2018-11-12] MEDS ORDERED: TORS10TA3 PO (03:07)
[2018-11-12] MEDS ORDERED: GLUCOSE 4 GM CHEW TABLET PO PRN (03:15)
[2018-11-12] MEDS ORDERED: GLUCAGON FOR INJ 1 MG VIAL (J1610) SC PRN (03:15)
[2018-11-12] MEDS ORDERED: DEXTROSE 50% 50 ML SYRINGE IV PRN (03:15)
[2018-11-12 03:20] LABS: CALCIUM LEVEL 8.5 MG/DL (8.8-10.2); GLOMERULAR FILTRATION RATE 11.5 (>32); POTASSIUM SERUM 5.5 MEQ/L (3.5-5.1)
[2018-11-12] MEDS ORDERED: FUROSEMIDE 20 MG/2 ML VIAL (J1940) IV ONE (03:30)
--- NOTE | 2018-11-12 03:40 | HPEPDOC ---
General Date of Admission Nov 12, 2018 at 00:14 Date of Service: Nov 12, 2018 Primary Care Physician: CODY CULVER DO Attending Physician: MARY QUINN DO Chief Complaint The patient is a 78-year-old female admitted with a reason for visit of Esrd On Dialysis. Source: Patient Exam Limitations: No limitations Timing/Duration: Day(s) (2) Severity: Mild History of Present Illness Patient is 78 years old female with end-stage renal diseases on dialysis, cor onary artery diseases, status post stent placement, diabetes mellitus, CHF presented to the hospital with increased shortness of breath. Patient stated that due to fistula hematoma on the right site she missed dialysis on Sunday. Yesterday she started developing shortness of breath which became worse today. In Emergency room chest x-ray showed mild bilateral pleural effusion. Patient denied fever, chills, nausea, vomiting, palpitations, chest pain, diarrhea or dysuria Home Medications Scheduled Aspirin (Aspirin EC) 325 Mg Tab, 325 MG PO DAILY, (Reported) Calcitriol (Calcitriol) 0.25 Mcg Cap, 0.25 MCG PO DAILY, (Reported) Carvedilol (Carvedilol) 25 Mg Tab, 25 MG PO BID, (Reported) Ezetimibe (Ezetimibe) 10 Mg Tab, 10 MG PO DAILY, (Reported) Glipizide (Glipizide) 10 Mg Tab, 10 MG PO DAILY, (Reported) Insulin Detemir (Levemir Flextouch) 100 Unit/Ml Inj, 46 UNIT SC QAM, (Reported) Insulin Detemir (Levemir Flextouch) 100 Unit/Ml Inj, 8 UNIT SC QHS, (Reported) Levothyroxine Sodium (Levothyroxine Sodium) 50 Mcg Tab, 50 MCG PO DAILY, (Reported) Rosuvastatin Calcium (Rosuvastatin Calcium) 20 Mg Tab, 20 MG PO DAILY, (Reported) Saxagliptin HCl (Onglyza) 2.5 Mg Tab, 2.5 MG PO DAILY, (Reported) Spironolactone (Spironolactone) 25 Mg Tablet, 25 MG PO DAILY, (Reported) Sucroferric Oxyhydroxide (Velphoro) 500 Mg Tab.chew, 500 MG PO TID, (Reported) Torsemide (Torsemide) 10 Mg Tablet, 20 MG PO BID, (Reported) Allergies Coded Allergies: codeine (Verified Adverse Reaction, Intermediate, Hallucinations, 06/10/18) Past Medical History Medical History End-stage renal diseases on dialysis Sunday, and Sunday, coronary artery diseases, status post stent placement, diabetes mellitus type 2, CHF, hypothyroidism Family History Both parents had coronary artery diseases, mother had diabetes, patient's sister and brother have diabetes Social History * Smoker: Denies Alcohol: Denies Drugs: denies A-FIB/CHADSVASC A-FIB History Current/History of A-Fib/PAF?: No Current PO Anticoag Therapy: No Review of Systems Constitutional: Denies: Chills, Fever Eyes: Denies: Pain, Vision change ENT: Denies: Head Aches, Ear Pain Skin: Denies: Rash, Lesions Pulmonary: Reports: Dyspnea Cardiovascular: Denies: Chest Pain, Palpitations Gastrointestinal: Denies: Nausea, Vomiting Genitourinary: Denies: Dysuria, Frequency Hematologic: Denies: Bruising, Bleeding Excessively Endocrine: Denies: Polydipsia, Polyphagia Musculoskeletal: Denies: Neck Pain, Back Pain Neurological: Denies: Weakness, Numbness Psych: Reports: Mood Normal Physical Examination General Exam: Positive: Alert, Cooperative Eye Exam: Positive: PERRLA, Conjunctiva & lids normal ENT Exam: Positive: Atraumatic Neck Exam: Positive: Supple; Negative: JVD Chest Exam: Positive: Rales, Diminished Heart Exam: Positive: Rate Normal; Negative: Tachycardic Telemetry: Positive: No significant arrhythmia Abdomen Exam: Positive: Normal bowel sounds Extremity Exam: Positive: Edema; Negative: Clubbing, Cyanosis Skin Exam: Positive: Nl turgor and temperature, Other skin issue (arterial bruit over right fistula, small hematoma in the right antecubital area); Negative: Rash Neuro Exam: Positive: Normal Gait, Strength at 5/5 X4 ext, Cranial Nerves 3-12 NL Psych Exam: Positive: Mental status NL Vital Signs Vital Signs Date Time Temp Pulse Resp B/P (MAP) Pulse Ox O2 Delivery O2 Flow Rate FiO2 11/12/18 00:30 11/12/18 00:13 97.3 94 22 95 Room Air Laboratory Data Labs 24H Laboratory Tests 2 11/12/18 02:39: Immature Granulocyte % (Auto) 0.4, White Blood Count 14.1H, Red Blood Count 3.95L, Hemoglobin 11.8L, Hematocrit 37.2, Mean Corpuscular Volume 94.2, Mean Corpuscular Hemoglobin 29.9, Mean Corpuscular Hemoglobin Concent 31.7L, Red Cell Distribution Width 15.2H, Platelet Count 156, Neutrophils (%) (Auto) 75.7H, Lymphocytes (%) (Auto) 12.3L, Monocytes (%) (Auto) 8.2H, Eosinophils (%) (Auto) 3.1H, Basophils (%) (Auto) 0.3, Neutrophils # (Auto) 10.7H, Lymphocytes # (Auto) 1.7, Monocytes # (Auto) 1.2H, Eosinophils # (Auto) 0.4, Basophils # (Auto) 0.0, Nucleated Red Blood Cells % (auto) 0.0, Anion Gap 6L, Glomerular Filtration Rate 11.5L, Blood Urea Nitrogen 61H, Creatinine 4.00H, Sodium Level 142, Potassium Level 5.5H, Chloride Level 111H, Carbon Dioxide Level 25, Calcium Level 8.5L CBC/BMP Laboratory Tests 11/12/18 02:39 Red Blood Count 3.95 L, Mean Corpuscular Volume 94.2, Mean Corpuscular Hemoglobin 29.9, Mean Corpuscular Hemoglobin Concent 31.7 L, Red Cell Distribution Width 15.2 H, Neutrophils (%) (Auto) 75.7 H, Lymphocytes (%) (Auto) 12.3 L, Monocytes (%) (Auto) 8.2 H, Eosinophils (%) (Auto) 3.1 H, Basophils (%) (Auto) 0.3, Neutrophils # (Auto) 10.7 H, Lymphocytes # (Auto) 1.7, Monocytes # (Auto) 1.2 H, Eosinophils # (Auto) 0.4, Basophils # (Auto) 0.0, Calcium Level 8.5 L Assessment/Plan Patient is 78 years old female with past medical history of end-stage renal diseases on dialysis presented hospital with increased shortness of breath. Patient missed dialysis on Sunday due to fistula hematoma. Problems (1) Shortness of breath Problem Text: Secondary to pleural effusion Patient missed one cycle of dialysis due to fistula hematoma, however on auscultation there is bruit over right fistula Dialysis in the morning Patient is producing urine, I will give her IV Lasix 20 Doppler ultrasound of right upper extremity (2) Diabetes Status: Chronic Problem Text: Insulin sliding scale Diabetes diet Detemir (3) ESRD (end stage renal disease) on dialysis Problem Text: Dialysis planned on the morning Dr. Garnett follows her Plan / VTE VTE Prophylaxis Ordered?: Yes MARY QUINN DO Nov 12, 2018 03:40
--- NOTE | 2018-11-12 04:51 | REPVR ---
EXAM: US Duplex Right Upper Extremity Veins, Limited EXAM DATE/TIME: 11/12/2018 4:31 AM CLINICAL HISTORY: 78 years old, female; Pain; Arn, upper; Right; Additional info: Dvt TECHNIQUE: Imaging protocol: Real-time Duplex ultrasound of the Right Upper Extremity with 2-D andrade scale, color Doppler flow and spectral waveform analysis with image documentation. Limited exam focused on the right upper extremity veins. COMPARISON: US VEIN MAPPING PRE AVF 05/11/2017 2:01 PM FINDINGS: Right deep veins: Unremarkable. Axillary and brachial veins are patent throughout without thrombus. Normal Doppler waveforms. Normal compressibility and/or augmentation response. Visualized internal jugular and subclavian veins are patent. Right superficial veins: Unremarkable. Visualized cephalic and basilic veins are patent without thrombus. Soft tissues: Nodule at the clinically palpable lump in the right arm with suggestion of hematocrit layering measuring 2.4 x 1.2 x 2.2 cm and likely reflects a subcutaneous hematoma. IMPRESSION: 1. Negative right upper extremity venous duplex exam without evidence of deep venous thrombosis. 2. Primarily hypoechoic complex nodule in the right arm at the site of a clinically palpable nodule measuring 2.4 x 1.2 x 2.2 cm and likely reflects a hematoma. Electronically signed by: Bruce Fernandez On 11/12/2018 04:51:48 AM
[2018-11-12 05:34] VITALS: BP 147/64
[2018-11-12] MEDS: HEPARIN SOD (PORCINE) 5000 UNITS/ML VIAL SC SCH ×2 (06:40→17:45)
[2018-11-12] MEDS: LEVOTHYROXINE 50MCG TABLET (0.05MG) PO SCH (06:40)
--- NOTE | 2018-11-12 07:22 | REP ---
PA and lateral chest: Comparison is the portable chest dated 04/29/2018. There is diffuse interstitial coarsening. This has increased from the prior study. There are no focal infiltrates. There are no pleural effusions. Cardiac size is enlarged, this is unchanged. The treasure, mediastinum, skeletal structures are unremarkable. Impression: Cardiomegaly. Interstitial coarsening as described. Electronically Signed by Derrick Ferreria MD 11/12/2018 07:14 A
--- NOTE | 2018-11-12 08:01 | IPNPDOC ---
Subjective Date Seen The patient was seen on 11/12/18. Subjective Chief Complaint/HPI Patient lying in bed comfortably as I entered the room. She reports her breathing to be improved from yesterday. She states she missed her usual dialysis treatment d/t pain in right arm/fistula Constitutional: Denies: Chills, Fever Pulmonary: Reports: Dyspnea; Denies: Cough, Pleuritic Chest Pain Cardiovascular: Denies: Chest Pain, Edema Gastrointestinal: Denies: Nausea, Vomiting Genitourinary: Denies: Dysuria Psych: Reports: Mood Normal Objective Physical Examination General Exam: Positive: Alert, Cooperative Eye Exam: Positive: PERRLA, Conjunctiva & lids normal ENT Exam: Positive: Atraumatic Neck Exam: Positive: Supple; Negative: JVD Chest Exam: Positive: Diminished; Negative: Rales, Rhonchi Heart Exam: Positive: Rate Normal; Negative: Tachycardic Telemetry: Positive: No significant arrhythmia Abdomen Exam: Positive: Normal bowel sounds Extremity Exam: Negative: Edema Skin Exam: Positive: Nl turgor and temperature, Other skin issue (arterial brui t over right fistula, small hematoma in the right antecubital area); Negative: Rash Neuro Exam: Positive: Normal Gait, Strength at 5/5 X4 ext, Cranial Nerves 3-12 NL Psych Exam: Positive: Mental status NL Assessment /Plan Problems (1) Shortness of breath Status: Acute Problem Text: 11/12/18: Patient reports breathing to be improved. She was given an additional Lasix 20 mg yesterday. She remains on Torsemide bid. Plan is for dialysis this morning Secondary to pleural effusion Patient missed one cycle of dialysis due to fistula hematoma, however on auscultation there is bruit over right fistula Dialysis in the morning Patient is producing urine, I will give her IV Lasix 20 Doppler ultrasound of right upper extremity (2) ESRD (end stage renal disease) on dialysis Status: Chronic Problem Text: 11/12/18: Nephrology consulted. We await their input regarding fistula access Dialysis planned on the morning Dr. Garnett follows her (3) Diabetes Status: Chronic Problem Text: Insulin sliding scale Diabetes diet Detemir Plan/VTE VTE Prophylaxis Ordered?: Yes (Heparin ) VS, I&O, 24H, Fishbone Vital Signs/I&O Vital Signs Date Time Temp Pulse Resp B/P (MAP) Pulse Ox O2 Delivery O2 Flow Rate FiO2 9/17/19 05:34 97.0 78 18 147/64 (91) 95 11/12/18 05:23 Room Air Laboratory Data 24H LABS Laboratory Tests 2 11/12/18 02:39: Immature Granulocyte % (Auto) 0.4, White Blood Count 14.1H, Red Blood Count 3.95L, Hemoglobin 11.8L, Hematocrit 37.2, Mean Corpuscular Volume 94.2, Mean Corpuscular Hemoglobin 29.9, Mean Corpuscular Hemoglobin Concent 31.7L, Red Cell Distribution Width 15.2H, Platelet Count 156, Neutrophils (%) (Auto) 75.7H, Lymphocytes (%) (Auto) 12.3L, Monocytes (%) (Auto) 8.2H, Eosinophils (%) (Auto) 3.1H, Basophils (%) (Auto) 0.3, Neutrophils # (Auto) 10.7H, Lymphocytes # (Auto) 1.7, Monocytes # (Auto) 1.2H, Eosinophils # (Auto) 0.4, Basophils # (Auto) 0.0, Nucleated Red Blood Cells % (auto) 0.0, Anion Gap 6L, Glomerular Filtration Rate 11.5L, Blood Urea Nitrogen 61H, Creatinine 4.00H, Sodium Level 142, Potassium Level 5.5H, Chloride Level 111H, Carbon Dioxide Level 25, Calcium Level 8.5L 11/12/18 06:17: Bedside Glucose (Misc Panel) 152H CBC/BMP Laboratory Tests 11/12/18 02:39 Red Blood Count 3.95 L, Mean Corpuscular Volume 94.2, Mean Corpuscular Hemoglobin 29.9, Mean Corpuscular Hemoglobin Concent 31.7 L, Red Cell Distribution Width 15.2 H, Neutrophils (%) (Auto) 75.7 H, Lymphocytes (%) (Auto) 12.3 L, Monocytes (%) (Auto) 8.2 H, Eosinophils (%) (Auto) 3.1 H, Basophils (%) (Auto) 0.3, Neutrophils # (Auto) 10.7 H, Lymphocytes # (Auto) 1.7, Monocytes # (Auto) 1.2 H, Eosinophils # (Auto) 0.4, Basophils # (Auto) 0.0, Calcium Level 8.5 L FABY MORALES Nov 12, 2018 08:01
[2018-11-12] MEDS: HumaLOG INSULIN (NovoLOG) PER UNIT SC SCH ×3 (08:22→17:44)
[2018-11-12] MEDS: LEVEMIR (INSULIN DETEMIR) 1 UNITS/0.01ML SC SCH (08:22)
[2018-11-12] MEDS: TORSEMIDE 20 MG TAB PO SCH ×2 (09:00→20:36)
[2018-11-12] MEDS ORDERED: ROSUVASTATIN 10 MG TAB (CRESTOR) PO SCH ×2 (09:00→21:00)
[2018-11-12] MEDS: SUCROFERRIC OXYHYDROXIDE 500MG CHEW TAB (VELPHORO) PO SCH ×3 (09:00→20:36)
[2018-11-12] MEDS: CARVedilol 12.5 MG TAB PO SCH ×2 (09:00→20:37)
[2018-11-12] MEDS ORDERED: EMLA CREAM 5GM (LIDOCAINE/PRILOCAINE) TOP ONE (11:00)
--- NOTE | 2018-11-12 12:17 | CR ---
DATE OF CONSULTATION: 11/12/2018 REQUESTING PHYSICIAN: Dr. Brendan Aponte [facility] three dose and CONSULTING PHYSICIAN: Dr. Younger REASON FOR CONSULTATION: Management of end-stage renal disease hemodialysis. CHIEF COMPLAINT: Patient presented to the emergency room yesterday with progressive shortness of breath after missing dialysis. HISTORY OF PRESENT ILLNESS: Theresa Eisenberg is an 78-year-old female with past medical history of end-stage renal disease on hemodialysis every Sunday, and Sunday, history of diabetes mellitus type 2, history of systolic congestive heart failure as per previous echocardiogram, multiple other comorbidities as mentioned below. She regularly gets Sunday, and Sunday dialysis. She reports that two sessions in a row on Sunday and , she had infiltration from the right upper arm AV fistula that caused a small hematoma formation so she was scared to go for dialysis so she missed her dialysis over the weekend on Sunday. However after missing dialysis she started developing progressive shortness of breath and because of that she presented to the emergency room yesterday. Imaging showed she had mild bilateral pleural effusions. Because of her decompensated fluid status the patient was given IV diuretics last night and nephrology service was called for further help in the management of volume status and arrangement of hemodialysis. I saw and evaluated the patient today morning at the bedside. She was in no apparent distress but she was care to have the dialysis done because of the small hematoma at the AV fistula site. The patient otherwise denies any fevers, chills, nausea, vomiting, chest pain or shortness of breath at this time. PAST MEDICAL HISTORY: History of end-stage renal disease on dialysis Sunday, and Sunday. History of coronary artery disease. Systolic congestive heart failure. Hypothyroidism. Diabetes mellitus type 2. Secondary hyperparathyroidism. Hyperlipidemia. PAST SURGICAL HISTORY: Status post of coronary artery stent placement. Status post right upper arm AV fistula placement. ALLERGIES: The patient is allergic to CODEINE. FAMILY HISTORY: No significant family history of end-stage renal disease or dialysis. Mother had diabetes and both parents had coronary artery disease. SOCIAL HISTORY: The patient denies any illicit drug abuse, smoking or alcohol abuse. REVIEW OF SYSTEMS: CONSTITUTIONAL: She denies any fevers or chills. EYES: She denies any blurry vision, double vision. ENT: She denies any dysphagia, odynophagia, ear discharge. CARDIOVASCULAR: Denies any chest pressure or palpitations. RESPIRATORY: She did report shortness of breath on arrival which is getting better now. GASTROINTESTINAL (GI): She denies any nausea, vomiting or constipation. GENITOURINARY: Denies any dysuria or hematuria. MUSCULOSKELETAL: She denies any muscle aches and pains apart from mild pain in the AV fistula site. SKIN: She denies any rashes or ulcers. PSYCH: Denies any depression or anxiety. HEMATOLOGICAL/ONCOLOGIC: She reports a small hematoma formation after infiltration at the AV fistula site. Otherwise, she denies any easy bleeding or bruising. BRUSH LOADER AND HANDLE ATTACHER: She denies any strokes or seizures. All other review of systems is negative. PHYSICAL EXAMINATION GENERAL: The patient is awake, alert, oriented times three, laying in the bed in no apparent distress. VITAL SIGNS: Temperature is 97 degrees Fahrenheit, blood pressure 147/64, pulse is 78, respiratory rate of 18, saturating 95% on room air. HEAD AND NECK EXAM: Extraocular muscles intact. Pupils equally round and reactive to light. Mucous membranes are moist. Neck is supple. There is mildly elevated JVD. CARDIOVASCULAR: S1, S2 regular rate. No edema of the bilateral lower extremities. RESPIRATORY: Chest is clear to auscultation bilaterally. Bilateral equal air entry. No rales or rhonchi. ABDOMEN: Soft, obese, positive bowel sounds. Nontender. No organomegaly. MUSCULOSKELETAL: No clubbing or cyanosis. Pulses are 2+. BRUSH LOADER AND HANDLE ATTACHER: No focal deficit. Power is 5/5 in all extremities. AV ACCESS: The patient has a right upper arm AV fistula with positive thrill and bruit. There is a small nonfluctuant hematoma medial to the AV fistula. No active bleeding was noted. LAB REVIEW: CBC showed WBC 14.1, hemoglobin 11.8, platelets 156. BMP showed sodium 142, potassium 5.5, chloride 111, bicarb 25, BUN 61, creatinine is 4, glucose 166. IMAGING: A Doppler of the right upper arm AV fistula was done which showed negative right upper extremity venous duplex exam without evidence of deep vein thrombosis (DVT). Hypoechoic complex nodule in the right arm at the site of AV fistula which was 2.4 x 1.2 x 2.2 cm and it reflects the hematoma. CURRENT INPATIENT MEDICATIONS: The patient's medications include: - aspirin 325 mg p.o. daily - calcitriol 0.25 mcg daily - Coreg 25 mg p.o. twice a day - Zetia 10 mg p.o. daily - Lasix 20 mg IV one dose was given last night. - She is on heparin subcu. - insulin Levemir 46 units subcu in the morning and 8 units in the evening - insulin sliding scale - levothyroxine 50 mcg p.o. daily - rosuvastatin 20 mg p.o. daily - spironolactone 25 mg p.o. daily - Velphoro 500 mg p.o. twice a day - torsemide 20 mg p.o. twice a day. ASSESSMENT: 78-year-old female with his end-stage renal disease on hemodialysis Sunday, and Sunday, history of systolic congestive heart failure, diabetes mellitus type 2, hypertension admitted this time with decompensated congestive heart failure after missing dialysis. PLAN: 1. End-stage renal disease on hemodialysis. The patient's regular dialysis days are Sunday, and Sunday. She missed dialysis yesterday. I have evaluated her fistula and I have personally marked the fistula site for needle insertion during dialysis with the help of vascular ultrasound. The patient will be dialyzed today in the afternoon. 2. Acute decompensated systolic congestive heart failure. It is secondary to missed dialysis. Patient is already on oral diuretics. Continue current dose of torsemide and spironolactone. Continue Coreg 25 mg p.o. twice a day. Further volume optimization will be done during dialysis today. 3. Diabetes mellitus type 2. Continue current dose of insulin Levemir, insulin sliding scale, avoid use of metformin. 4. Hypertension with hypertensive heart disease and end-stage renal disease. Continue current dose of Coreg 25 mg p.o. twice a day. 5. Secondary hyperparathyroidism. Continue current dose of calcitriol 0.25 mcg p.o. daily. 6. Chronic kidney disease and mineral bone disease. Continue current dose of Velphoro 500 mg p.o. three times a day with meals. 7. Hypothyroidism. Continue current dose of levothyroxine 50 mcg p.o. daily. 8. Hyperkalemia. It is secondary to missed dialysis. The patient will be dialyzed with a 2 K bath which is expected to improve the potassium levels. Thank you for involving me in the care of this patient. I shall be happy to follow the patient along with you tomorrow morning.
[2018-11-12] MEDS ORDERED: LIDOCAINE 1% SDV 5 ML VIAL SQ ONE (14:00)
[2018-11-12] MEDS: EZETIMIBE 10 MG TAB (ZETIA) PO SCH (15:55)
[2018-11-12] MEDS: CALCITRIOL 0.25 MCG CAP (S0169) PO SCH (15:55)
[2018-11-12] MEDS: ASPIRIN ENTERIC 325 MG TAB PO SCH (15:56)
[2018-11-12] MEDS: SPIRONOLACTONE 25 MG TAB PO SCH (15:57)
[2018-11-12 16:00] VITALS: BP 114/48
[2018-11-12] MEDS ORDERED: LEVEMIR (INSULIN DETEMIR) 1 UNITS/0.01ML SC SCH (21:00)
[2018-11-12 22:00] VITALS: BP 120/57
[2018-11-13 02:00] VITALS: BP 120/57
[2018-11-13] MEDS: LEVOTHYROXINE 50MCG TABLET (0.05MG) PO SCH (05:32)
[2018-11-13] MEDS: HEPARIN SOD (PORCINE) 5000 UNITS/ML VIAL SC SCH (05:32)
[2018-11-13 06:00] VITALS: BP 115/57
[2018-11-13 06:54] LABS: HEMATOCRIT 35.8 % (36.0-47.0); HEMOGLOBIN 11.5 g/dl (12.0-15.5); MEAN CORPUSCULAR HEMOGLOBIN 29.9 pg (27.0-33.0); MEAN CORPUSCULAR HGB CONC 32.1 g/dl (32.0-36.5); PLATELET COUNT, AUTOMATED 150 10^3/uL (150-450); RED BLOOD COUNT 3.85 10^6/uL (4.00-5.40); WHITE BLOOD COUNT 8.4 10^3/uL (4.0-10.0)
[2018-11-13 07:23] LABS: CALCIUM LEVEL 8.7 MG/DL (8.8-10.2); CREATININE FOR GFR 3.35 MG/DL (0.55-1.30); GLOMERULAR FILTRATION RATE 14.1 (>32); POTASSIUM SERUM 4.5 MEQ/L (3.5-5.1)
[2018-11-13] MEDS: HumaLOG INSULIN (NovoLOG) PER UNIT SC SCH (07:30)
[2018-11-13] MEDS: ASPIRIN ENTERIC 325 MG TAB PO SCH (09:10)
[2018-11-13 09:11] VITALS: BP 131/65
[2018-11-13] MEDS: TORSEMIDE 20 MG TAB PO SCH (09:11)
[2018-11-13] MEDS: EZETIMIBE 10 MG TAB (ZETIA) PO SCH (09:11)
[2018-11-13] MEDS: CARVedilol 12.5 MG TAB PO SCH (09:11)
[2018-11-13] MEDS: SPIRONOLACTONE 25 MG TAB PO SCH (09:12)
[2018-11-13] MEDS: CALCITRIOL 0.25 MCG CAP (S0169) PO SCH (09:12)
[2018-11-13] MEDS: SUCROFERRIC OXYHYDROXIDE 500MG CHEW TAB (VELPHORO) PO SCH (09:37)
[2018-11-13] MEDS: LEVEMIR (INSULIN DETEMIR) 1 UNITS/0.01ML SC SCH (11:00)
--- NOTE | 2018-11-13 13:06 | DS.PDOC ---
Discharge Summary General Date of Admission Nov 12, 2018 at 00:14 Date of Discharge Nov 14, 2018 Attending Physician: Kadeem De La Paz MD Specialist/Consultants Involve: NILE SPANN MD Discharge Summary PROCEDURES PERFORMED DURING STAY: None ADMITTING DIAGNOSES: 1. ESRD on dialysis 2. Acute decompensated systolic congestive heart failure 3. Hyperkalemia 4. DM Type 2 5. Hypertension COMPLICATIONS/CHIEF COMPLAINT: Esrd On Dialysis. HISTORY OF PRESENT ILLNESS: 78-year-old female with past medical history of end- stage renal disease on hemodialysis every Sunday, and Sunday presented to the ER for shortness of breath. She reported that two dialysis sessions in a row (Sunday and ), she had infiltration from the right upper arm AV fistula that caused a small hematoma formation so she was scared to go for dialysis, missing her dialysis over the weekend on Sunday. However, after missing dialysis she started developing progressive shortness of breath and because of that she presented to the emergency room yesterday. HOSPITAL COURSE: Patient was admitted to hospital for further management. Imaging showed she had mild bilateral pleural effusions. Because of her decompensated fluid status the patient was given IV diuretics and nephrology was called for further help in the management of volume status and arrangement of hemodialysis. Nephrology evaluated her fistula marked the fistula site for needle insertion during dialysis. The patient was dialyzed on Sunday. She tolerated dialysis well. Patient's volume status was much improved after dialysis. She was discharged home on 11/14/18 to resume her normal dialysis schedule. DISCHARGE MEDICATIONS: Please see below. ALLERGIES: Please see below. PHYSICAL EXAMINATION ON DISCHARGE: VITAL SIGNS: Please see below. GENERAL: AOx3, in NAD HEENT: unremarkable NECK: supple, no JVD CARDIOVASCULAR EXAMINATION: RRR RESPIRATORY EXAMINATION: CTA ABDOMINAL EXAMINATION: soft, non-tender, non-distended EXTREMITIES: no edema SKIN: warm, dry LABORATORY DATA: Please see below. IMAGING: Chest x-ray: interstitial coarsening. No focal infiltrates. No pleural effusions. Cardiac size is enlarged, this is unchanged. The terasure, mediastinum, skeletal structures are unremarkable. Impression: Cardiomegaly. Duplex Ultrasound of RUE extremity: IMPRESSION: 1. Negative right upper extremity venous duplex exam without evidence of deep venous thrombosis. 2. Primarily hypoechoic complex nodule in the right arm at the site of a clinically palpable nodule measuring 2.4 x 1.2 x 2.2 cm and likely reflects a hematoma. PROGNOSIS: Good ACTIVITY:As tolerated DISCHARGE PLAN: To home DISCHARGE INSTRUCTIONS: 1. Attend regular dialysis sessions 2. F/U with PCP within one week Vital Signs/I&Os Vital Signs Date Time Temp Pulse Resp B/P (MAP) Pulse Ox O2 Delivery O2 Flow Rate FiO2 11/13/18 09:11 72 131/65 11/13/18 06:00 96.5 16 97 11/12/18 05:23 Room Air I&O- Last 24 Hours up to 6 AM 11/13/18 06:00 Intake Total 800 ml Output Total 2500 ml Balance -1700 ml Laboratory Data Labs 24H Laboratory Tests 2 11/12/18 15:22: Bedside Glucose (Misc Panel) 81L 11/12/18 17:17: Bedside Glucose (Misc Panel) 193H 11/12/18 20:16: Bedside Glucose (Misc Panel) 212H 11/13/18 06:35: Nucleated Red Blood Cells % (auto) 0.0, Anion Gap 8, Glomerular Filtration Rate 14.1L, Blood Urea Nitrogen 33H, Creatinine 3.35H, Sodium Level 144, Potassium Level 4.5, Chloride Level 111H, Carbon Dioxide Level 25, Calcium Level 8.7L 11/13/18 09:04: Bedside Glucose (Misc Panel) 88 CBC/BMP Laboratory Tests 11/13/18 06:35 Red Blood Count 3.85 L, Mean Corpuscular Volume 93.0, Mean Corpuscular Hemoglobin 29.9, Mean Corpuscular Hemoglobin Concent 32.1, Red Cell Distribution Width 15.3 H, Calcium Level 8.7 L FSBS Laboratory Tests Test 11/12/18 15:22 11/12/18 17:17 11/12/18 20:16 11/13/18 09:04 Range/Units Bedside Glucose (Misc Panel) 81 193 212 88 83-110 MG/DL Discharge Medications Scheduled Aspirin (Aspirin EC) 325 Mg Tab, 325 MG PO DAILY, (Reported) Calcitriol (Calcitriol) 0.25 Mcg Cap, 0.25 MCG PO DAILY, (Reported) Carvedilol (Carvedilol) 25 Mg Tab, 25 MG PO BID, (Reported) Ezetimibe (Ezetimibe) 10 Mg Tab, 10 MG PO DAILY, (Reported) Glipizide (Glipizide) 10 Mg Tab, 10 MG PO DAILY, (Reported) Insulin Detemir (Levemir Flextouch) 100 Unit/Ml Inj, 46 UNIT SC QAM, (Reported) Insulin Detemir (Levemir Flextouch) 100 Unit/Ml Inj, 8 UNIT SC QHS, (Reported) Levothyroxine Sodium (Levothyroxine Sodium) 50 Mcg Tab, 50 MCG PO DAILY, (Reported) Rosuvastatin Calcium (Rosuvastatin Calcium) 20 Mg Tab, 20 MG PO DAILY, (Reported) Saxagliptin HCl (Onglyza) 2.5 Mg Tab, 2.5 MG PO DAILY, (Reported) Spironolactone (Spironolactone) 25 Mg Tablet, 25 MG PO DAILY, (Reported) Sucroferric Oxyhydroxide (Velphoro) 500 Mg Tab.chew, 500 MG PO TID, (Reported) Torsemide (Torsemide) 10 Mg Tablet, 20 MG PO BID, (Reported) Allergies Coded Allergies: codeine (Verified Adverse Reaction, Intermediate, Hallucinations, 06/10/18) FABY MORALES CAR CLEANER Nov 13, 2018 10:21
--- NOTE | 2018-11-13 17:33 | IPN ---
DATE: 11/13/2018 SUBJECTIVE: The patient was seen and examined at the bedside today morning. She is afebrile, hemodynamically stable. She was dialyzed yesterday. She had no issues with dialysis. There was no infiltration during dialysis, and she denies any pain at the fistula site. The patient is happy, and she says that she is getting ready to be discharged today. OBJECTIVE: Vital signs: Temperature is 96.5 degrees Fahrenheit, blood pressure 115/57, pulse is 64, respiratory rate of 16, saturating 97% on room air. Intake and output: Urine output recorded is 100 mL. Ultrafiltration with hemodialysis was 2 liters. Weight on the bed scale is not available. PHYSICAL EXAMINATION: General: The patient is awake, alert, oriented times three, laying in bed in no apparent distress. Head and neck exam: Extraocular muscles intact. Pupils equally round and reactive to light. Mucous membranes are moist. Neck is supple. There is no jugular venous distention (JVD). Cardiovascular: S1, S2, regular rate. No edema of the bilateral lower extremities. Respiratory: Chest is clear to auscultation bilaterally. Bilateral equal air entry. No rales or rhonchi. Abdomen: Soft, positive bowel sounds. Nontender. No organomegaly. Musculoskeletal: No clubbing or cyanosis. Pulses are 2+. Right upper arm arteriovenous (AV) fistula site is covered with a dressing. Central nervous system (REDIPPER): No focal deficit. Power is 5/5 in all extremities. LAB REVIEW: CBC showed WBC 8.4, hemoglobin is 11.5. BMP showed sodium 144, potassium 4.5, BUN 33, creatinine is 3.3. CURRENT INPATIENT MEDICATIONS: The patient's medications were all reviewed by me. There is no change in the medications today as compared with yesterday. ASSESSMENT/PLAN: 1. End-stage renal disease, on hemodialysis. The patient's regular dialysis days are Sunday, , Sunday. She was dialyzed yesterday. Next hemodialysis will be tomorrow morning as outpatient. 2. Chronic systolic congestive heart failure. The patient's volume status is optimal now. Two liters of fluid was removed. Rest of the volume management will be done as outpatient. 3. Hypertension with hypertensive heart disease. Continue current dose of Coreg 25 mg by mouth twice a day. 4. Right upper arm AV fistula malfunction. The patient had extravasation and infiltration during dialysis twice in a row last week. However, her AV fistula was marked with a skin marker under ultrasound guidance, and we had no issues with dialysis. She was advised to use the same markings as outpatient while she undergoes dialysis. DISPOSITION: The patient is okay to be discharged from nephrology standpoint.
== END 2018-11-13 11:37 | disposition home or self-care (01) ==
LOC: M ED 00:13 → M ED INP 00:14 → M MSPAV 05:31
PROVIDERS: ADMIT Internal Medicine; ATTEND Family Medicine
DX: N18.6 End stage renal disease (principal); Z79.899 Other long term (current) drug therapy; I50.31 Acute diastolic (congestive) heart failure; E87.5 Hyperkalemia; E11.9 Type 2 diabetes mellitus without complications; I12.0 Hypertensive chronic kidney disease with stage 5 chronic kidney disease or end stage renal disease; Z79.82 Long term (current) use of aspirin; Z79.4 Long term (current) use of insulin; Z88.8 Allergy status to other drugs, medicaments and biological substances
CPT/HCPCS: 36415; 71046; 80048; 85025; 85027; 93971; 96372; 96374; 99284; G0257; G0378; J1940

== ENCOUNTER → 2018-11-29 | Outpatient (REF) | payer MEDICARE, MEDICAID ==
[~2018-11-29] MED LIST changes: +VELP5CHW PO
[2018-11-29 17:11] LABS: HEMOGLOBIN A1c 8.1 %
== END ==
LOC: M SFHCADAM 13:57
PROVIDERS: ATTEND Physician Assistant
DX: E11.69 Type 2 diabetes mellitus with other specified complication (principal)
CPT/HCPCS: 83036; 99495; G0463

== ENCOUNTER → 2019-01-29 | Outpatient (REF) | payer MEDICARE, MEDICAID | LOC: M SFHCPLAZ 11:22 | PROVIDERS: ATTEND Physician Assistant Medical | DX: E11.69 Type 2 diabetes mellitus with other specified complication (principal); E03.9 Hypothyroidism, unspecified; I12.0 Hypertensive chronic kidney disease with stage 5 chronic kidney disease or end stage renal disease; N18.6 End stage renal disease; Z53.8 Procedure and treatment not carried out for other reasons ==

== ENCOUNTER → 2019-01-29 | Outpatient (CLI) | payer MEDICARE, MEDICAID ==
[2019-01-29 16:01] LABS: HEMOGLOBIN A1c 7.7 %
[2019-01-29 16:08] LABS: BASO % 0.4 % (0.0-1.0); EOS # 0.5 10^3/uL (0.0-0.5); EOS % 5.1 % (0.0-3.0); HEMATOCRIT 39.5 % (36.0-47.0); HEMOGLOBIN 12.9 g/dl (12.0-15.5); LYMPH # 1.9 10^3/uL (1.5-5.0); LYMPH % 18.5 % (24.0-44.0); MEAN CORPUSCULAR HEMOGLOBIN 29.9 pg (27.0-33.0); MEAN CORPUSCULAR HGB CONC 32.7 g/dl (32.0-36.5); MEAN CORPUSCULAR VOLUME 91.6 fl (80.0-96.0); MONO # 0.9 10^3/uL (0.0-0.8); MONO % 8.8 % (0.0-5.0); NEUTROPHILS % 66.9 % (36.0-66.0); PLATELET COUNT, AUTOMATED 175 10^3/uL (150-450); RED BLOOD COUNT 4.31 10^6/uL (4.00-5.40); WHITE BLOOD COUNT 10.4 10^3/uL (4.0-10.0)
[2019-01-29 16:10] LABS: ALBUMIN 3.7 GM/DL (3.2-5.2); BILIRUBIN,TOTAL 0.4 MG/DL (0.2-1.0); CALCIUM LEVEL 8.8 MG/DL (8.8-10.2); CREATININE FOR GFR 3.17 MG/DL (0.55-1.30); FREE T4 1.15 NG/DL (0.76-1.46); MAGNESIUM LEVEL 2.3 MG/DL (1.8-2.4); POTASSIUM SERUM 3.8 MEQ/L (3.5-5.1); THYROID STIMULATING HORMONE 2.35 uIU/ML (0.358-3.740)
== END ==
LOC: M PLALAB 11:29
PROVIDERS: ATTEND Physician Assistant Medical
DX: N18.6 End stage renal disease (principal); I12.0 Hypertensive chronic kidney disease with stage 5 chronic kidney disease or end stage renal disease; E03.9 Hypothyroidism, unspecified; E11.69 Type 2 diabetes mellitus with other specified complication

== ENCOUNTER → 2019-02-14 | Outpatient (CLI) | payer MEDICARE, MEDICAID ==
--- NOTE | 2019-02-14 14:36 | REP ---
CAROTID ULTRASOUND: Real-time ultrasound evaluation and duplex Doppler interrogation of the extracranial carotid vasculature is performed. There is mild plaquing and narrowing in both carotid bulbs extending into the internal and external carotid arteries. Luminal narrowing is less than 50%. There is no evidence of hemodynamically significant stenosis of either internal carotid artery. Normal flow velocities are seen. The vertebral arteries demonstrate normal direction of flow. RIGHT LEFT Peak systolic velocity ICA 121 cm/s 85 cm/s End diastolic velocity ICA 31.6 cm/s 22.3 cm/s Peak systolic velocity CCA 101 cm/s 98.8 cm/s Peak systolic velocity ECA 99.3 cm/s 83.6 cm/s ICA/CCA ratio 1.2 0.9 IMPRESSION: Bilateral luminal narrowing of the internal carotid arteries less than 50%. No evidence of hemodynamically significant stenosis. Electronically Signed by Derrick Arita MD 02/14/2019 02:28 P
== END ==
LOC: M RAD 12:46
PROVIDERS: ATTEND Internal Medicine Nephrology
DX: I65.21 Occlusion and stenosis of right carotid artery (principal)

== ENCOUNTER → 2019-10-07 | Outpatient (REF) | payer MEDICARE, MEDICAID ==
[~2019-10-07] MED LIST changes: +AMLO1TAB24 PO; -AMLO5TAB6 PO
[2019-11-21 20:36] LABS: ALBUMIN 3.5 GM/DL (3.2-5.2); BILIRUBIN,TOTAL 0.5 MG/DL (0.2-1.0); CALCIUM LEVEL 8.7 MG/DL (8.8-10.2); CHOLESTEROL RISK RATIO 2.888 (<5); CREATININE FOR GFR 3.71 MG/DL (0.55-1.30); FREE T4 1.21 NG/DL (0.76-1.46); GLOMERULAR FILTRATION RATE 12.5 (>32); POTASSIUM SERUM 4.4 MEQ/L (3.5-5.1); THYROID STIMULATING HORMONE 2.66 uIU/ML (0.358-3.740)
[2019-11-21 20:37] LABS: HEMOGLOBIN A1c 7.4 %
== END ==
LOC: M SFHCPLAZ 06:18
PROVIDERS: ATTEND Physician Assistant Medical
DX: E03.9 Hypothyroidism, unspecified (principal); E11.69 Type 2 diabetes mellitus with other specified complication

== ENCOUNTER → 2020-01-06 | Outpatient (REF) | payer MEDICARE, MEDICAID ==
[2020-01-06 13:28] LABS: ALBUMIN 3.6 GM/DL (3.2-5.2); BILIRUBIN,TOTAL 0.4 MG/DL (0.2-1.0); CALCIUM LEVEL 8.9 MG/DL (8.8-10.2); CREATININE FOR GFR 3.57 MG/DL (0.55-1.30); POTASSIUM SERUM 4.7 MEQ/L (3.5-5.1); TOTAL PROTEIN 6.8 GM/DL (6.4-8.2)
== END ==
LOC: M SFHCPLAZ 10:40
PROVIDERS: ATTEND Physician Assistant Medical
DX: N18.6 End stage renal disease (principal)

== ENCOUNTER → 2020-02-03 | Outpatient (REF) | payer MEDICARE, MEDICAID ==
[2020-02-03 14:37] LABS: BASO % 0.3 % (0.0-1.0); EOS # 0.3 10^3/uL (0.0-0.5); EOS % 3.6 % (0.0-3.0); HEMATOCRIT 36.2 % (36.0-47.0); HEMOGLOBIN 11.2 g/dl (12.0-15.5); LYMPH # 1.4 10^3/uL (1.5-5.0); LYMPH % 15.7 % (24.0-44.0); MEAN CORPUSCULAR HEMOGLOBIN 27.7 pg (27.0-33.0); MEAN CORPUSCULAR HGB CONC 30.9 g/dl (32.0-36.5); MEAN CORPUSCULAR VOLUME 89.4 fl (80.0-96.0); MONO # 0.9 10^3/uL (0.0-0.8); MONO % 9.7 % (0.0-5.0); NEUTROPHILS # 6.2 10^3/uL (1.5-8.5); NEUTROPHILS % 70.2 % (36.0-66.0); PLATELET COUNT, AUTOMATED 162 10^3/uL (150-450); RED BLOOD COUNT 4.05 10^6/uL (4.00-5.40); WHITE BLOOD COUNT 8.8 10^3/uL (4.0-10.0)
[2020-02-03 15:17] LABS: FREE T4 1.19 NG/DL (0.76-1.46); THYROID STIMULATING HORMONE 2.92 uIU/ML (0.358-3.740)
== END ==
LOC: M SFHCPLAZ 09:41
PROVIDERS: ATTEND Physician Assistant Medical
DX: E11.69 Type 2 diabetes mellitus with other specified complication (principal); I10 Essential (primary) hypertension; E03.9 Hypothyroidism, unspecified

== ENCOUNTER → 2020-10-14 | Outpatient (CLI) | payer MEDICARE, OTHER ==
[~2020-10-14] MED LIST changes: +ISOVUE-370 76% 100ML VIAL As Ordered ONE
--- NOTE | 2020-10-14 13:17 | REP ---
INDICATION: J84.10 PULMONARY FIBROSIS R09.20 HYPOXCEMIA COMPARISON: 02/12/2018 the only prior TECHNIQUE: Standard helical technique after the intravenous administration of 100 cc Isovue 370. FINDINGS: The mediastinum and pulmonary treasure are essentially unchanged. There is no evidence of a mass or adenopathy. There are no pleural or pericardial effusions. There is four-chamber cardiac enlargement status quo. There is no significant change in appearance of the imaged upper abdomen. Cholelithiasis is again noted. The osseous structures stable and intact. Evaluation of the lung brooks shows a few scattered asymmetric parenchymal densities status quo. There are curvilinear densities seen in the left lung base. The large area of atelectasis in the left lower lobe seen previously has resolved. In the right upper lobe there is a new 5 mm sized pulmonary nodule. Inferior to this there is an additional 3 mm sized pulmonary nodule. IMPRESSION: 1. Two right lung pulmonary nodules as described above. Lung rads category 3. Six-month follow-up CT is recommended. 2. Chronic basilar fibrotic and slight subsegmental atelectatic changes as described above. 3. Other findings and chronic changes as described above. <Electronically signed by Meet Mcdaniel > 10/14/20 2039
== END ==
LOC: M RAD 11:13
PROVIDERS: ATTEND Internal Medicine Nephrology
DX: J84.10 Pulmonary fibrosis, unspecified (principal); R91.8 Other nonspecific abnormal finding of lung field; R09.02 Hypoxemia
CPT/HCPCS: 71260; Q9967

== ENCOUNTER → 2020-11-04 | Outpatient (CLI) | payer MEDICARE, OTHER ==
[~2020-11-04] MED LIST changes: -ISOVUE-370 76% 100ML VIAL As Ordered ONE
[2020-11-04 13:06] LABS: BASO % 0.3 % (0.0-1.0); EOS # 0.6 10^3/uL (0.0-0.5); EOS % 6.1 % (0.0-3.0); HEMATOCRIT 42.6 % (36.0-47.0); HEMOGLOBIN 13.6 g/dl (12.0-15.5); LYMPH % 18.7 % (24.0-44.0); MEAN CORPUSCULAR HEMOGLOBIN 29.4 pg (27.0-33.0); MEAN CORPUSCULAR HGB CONC 31.9 g/dl (32.0-36.5); MEAN CORPUSCULAR VOLUME 92.2 fl (80.0-96.0); MONO % 9.1 % (2.0-8.0); NEUTROPHILS # 6.8 10^3/uL (1.5-8.5); NEUTROPHILS % 65.6 % (36.0-66.0); PLATELET COUNT, AUTOMATED 194 10^3/uL (150-450); RED BLOOD COUNT 4.62 10^6/uL (4.00-5.40); WHITE BLOOD COUNT 10.4 10^3/uL (4.0-10.0)
[2020-11-04 13:57] LABS: BILIRUBIN,TOTAL 0.5 MG/DL (0.2-1.0); CALCIUM LEVEL 9.1 MG/DL (8.8-10.2); CREATININE FOR GFR 4.22 MG/DL (0.55-1.30); GLOMERULAR FILTRATION RATE 10.7 (>32); POTASSIUM SERUM 4.7 MEQ/L (3.5-5.1)
[2020-11-04 13:58] LABS: ALBUMIN 3.6 GM/DL (3.2-5.2); CHOLESTEROL RISK RATIO 3.02 (<5); FREE T4 1.19 NG/DL (0.76-1.46); THYROID STIMULATING HORMONE 2.97 uIU/ML (0.358-3.740); TOTAL PROTEIN 7.3 GM/DL (6.4-8.2)
[2020-11-04 14:40] LABS: HEMOGLOBIN A1c 7.5 %
== END ==
LOC: M PLALAB 11:07
PROVIDERS: ATTEND Physician Assistant Medical
DX: D64.9 Anemia, unspecified (principal); E78.2 Mixed hyperlipidemia; E11.69 Type 2 diabetes mellitus with other specified complication; E03.9 Hypothyroidism, unspecified; N18.6 End stage renal disease

== ENCOUNTER → 2021-03-31 | Outpatient (CLI) | payer MEDICARE, OTHER ==
[~2021-03-31] MED LIST changes: +ISOVUE-370 76% 100ML VIAL As Ordered ONE
== END ==
LOC: M RAD 17:11
PROVIDERS: ATTEND Nurse Practitioner Family
DX: R91.1 Solitary pulmonary nodule (principal); E10.22 Type 1 diabetes mellitus with diabetic chronic kidney disease; N18.6 End stage renal disease; Z99.2 Dependence on renal dialysis
CPT/HCPCS: 71260; Q9967

== ENCOUNTER → 2021-05-03 | Outpatient (CLI) | payer MEDICARE, OTHER ==
[~2021-05-03] MED LIST changes: -ISOVUE-370 76% 100ML VIAL As Ordered ONE
[2021-05-03 17:35] LABS: BASO % 0.4 % (0.0-1.0); EOS # 0.5 10^3/uL (0.0-0.5); HEMATOCRIT 35.4 % (36.0-47.0); HEMOGLOBIN 11.2 g/dl (12.0-15.5); LYMPH # 1.4 10^3/uL (1.5-5.0); LYMPH % 15.7 % (24.0-44.0); MEAN CORPUSCULAR HEMOGLOBIN 29.5 pg (27.0-33.0); MEAN CORPUSCULAR HGB CONC 31.6 g/dl (32.0-36.5); MEAN CORPUSCULAR VOLUME 93.2 fl (80.0-96.0); MONO # 0.8 10^3/uL (0.0-0.8); MONO % 8.5 % (2.0-8.0); NEUTROPHILS # 6.2 10^3/uL (1.5-8.5); NEUTROPHILS % 68.3 % (36.0-66.0); PLATELET COUNT, AUTOMATED 140 10^3/uL (150-450)
[2021-05-03 17:43] LABS: HEMOGLOBIN A1c 7.5 %
[2021-05-03 17:57] LABS: ALBUMIN 3.5 GM/DL (3.2-5.2); BILIRUBIN,TOTAL 0.4 MG/DL (0.2-1.0); CALCIUM LEVEL 9.1 MG/DL (8.8-10.2); CHOLESTEROL RISK RATIO 3.078 (<5); CREATININE FOR GFR 5.37 MG/DL (0.55-1.30); FREE T4 1.03 NG/DL (0.76-1.46); GLOMERULAR FILTRATION RATE 8.1 (>32); POTASSIUM SERUM 4.1 MEQ/L (3.5-5.1); THYROID STIMULATING HORMONE 3.03 uIU/ML (0.358-3.740); TOTAL PROTEIN 6.9 GM/DL (6.4-8.2)
== END ==
LOC: M PLALAB 15:46
PROVIDERS: ATTEND Physician Assistant Medical
DX: D64.9 Anemia, unspecified (principal); E78.2 Mixed hyperlipidemia; E11.69 Type 2 diabetes mellitus with other specified complication; E03.9 Hypothyroidism, unspecified; N18.6 End stage renal disease

== ENCOUNTER → 2021-10-20 | Outpatient (CLI) | payer MEDICARE, OTHER, MEDICAID ==
[2021-10-20 17:28] LABS: BASO % 0.4 % (0.0-1.0); EOS # 0.4 10^3/uL (0.0-0.5); EOS % 5.2 % (0.0-3.0); HEMATOCRIT 36.6 % (36.0-47.0); LYMPH # 0.9 10^3/uL (1.5-5.0); LYMPH % 12.9 % (24.0-44.0); MEAN CORPUSCULAR HEMOGLOBIN 28.4 pg (27.0-33.0); MEAN CORPUSCULAR HGB CONC 30.1 g/dl (32.0-36.5); MEAN CORPUSCULAR VOLUME 94.6 fl (80.0-96.0); MONO # 0.8 10^3/uL (0.0-0.8); MONO % 10.8 % (2.0-8.0); NEUTROPHILS # 5.1 10^3/uL (1.5-8.5); NEUTROPHILS % 70.4 % (36.0-66.0); PLATELET COUNT, AUTOMATED 120 10^3/uL (150-450); RED BLOOD COUNT 3.87 10^6/uL (4.00-5.40); WHITE BLOOD COUNT 7.3 10^3/uL (4.0-10.0)
[2021-10-20 18:06] LABS: ALBUMIN 3.5 GM/DL (3.2-5.2); BILIRUBIN,TOTAL 0.6 MG/DL (0.2-1.0); CALCIUM LEVEL 8.6 MG/DL (8.8-10.2); CREATININE FOR GFR 5.03 MG/DL (0.55-1.30); GLOMERULAR FILTRATION RATE 8.7 (>32); MAGNESIUM LEVEL 2.5 MG/DL (1.8-2.4); POTASSIUM SERUM 3.8 MEQ/L (3.5-5.1); TOTAL PROTEIN 6.8 GM/DL (6.4-8.2)
== END ==
LOC: M PLALAB 14:45
PROVIDERS: ATTEND Physician Assistant Medical
DX: D64.9 Anemia, unspecified (principal)

== ENCOUNTER → 2022-01-18 | Outpatient (CLI) | payer MEDICARE, MEDICAID ==
[2022-01-18 14:21] LABS: BASO % 0.4 % (0.0-1.0); EOS # 0.4 10^3/uL (0.0-0.5); EOS % 4.4 % (0.0-3.0); HEMATOCRIT 38.6 % (36.0-47.0); HEMOGLOBIN 11.6 g/dl (12.0-15.5); LYMPH # 1.2 10^3/uL (1.5-5.0); LYMPH % 14.3 % (24.0-44.0); MEAN CORPUSCULAR HEMOGLOBIN 28.5 pg (27.0-33.0); MEAN CORPUSCULAR HGB CONC 30.1 g/dl (32.0-36.5); MEAN CORPUSCULAR VOLUME 94.8 fl (80.0-96.0); MONO # 0.8 10^3/uL (0.0-0.8); MONO % 10.2 % (2.0-8.0); NEUTROPHILS # 5.7 10^3/uL (1.5-8.5); NEUTROPHILS % 70.3 % (36.0-66.0); PLATELET COUNT, AUTOMATED 127 10^3/uL (150-450); RED BLOOD COUNT 4.07 10^6/uL (4.00-5.40)
[2022-01-18 14:41] LABS: ALBUMIN 3.5 G/DL (3.2-5.2); BILIRUBIN,TOTAL 0.5 MG/DL (0.3-1.2); CALCIUM LEVEL 8.9 MG/DL (8.3-10.6); CREATININE FOR GFR 4.54 MG/DL (0.55-1.30); FREE T4 1.3 NG/DL (0.89-1.76); GLOMERULAR FILTRATION RATE 9.8 (>32); THYROID STIMULATING HORMONE 4.084 uIU/ML (0.55-4.78); TOTAL PROTEIN 6.7 G/DL (5.7-8.2)
[2022-01-18 18:32] LABS: HEMOGLOBIN A1c 7.6 % (4.0-6.0)
== END ==
LOC: M PLALAB 10:46
PROVIDERS: ATTEND Physician Assistant Medical
DX: E03.9 Hypothyroidism, unspecified (principal); E11.69 Type 2 diabetes mellitus with other specified complication; I12.0 Hypertensive chronic kidney disease with stage 5 chronic kidney disease or end stage renal disease; N18.6 End stage renal disease

== ENCOUNTER 2022-01-19 17:25 | Emergency (ER) | payer MEDICARE, MEDICAID ==
[~2022-01-19] VITALS: Ht 149.9 cm; Wt 78.2 kg
[2022-01-19] MEDS ORDERED: ACETAMINOPHEN TAB 650MG DOSE (2X325MG) PO ONE (19:05)
[2022-01-19 20:28] VITALS: BP 124/74
== END 2022-01-19 20:29 | disposition home or self-care (01) ==
LOC: M ED 17:25
DX: S30.0XXA Contusion of lower back and pelvis, initial encounter (principal); W00.0XXA Fall on same level due to ice and snow, initial encounter; I13.2 Hypertensive heart and chronic kidney disease with heart failure and with stage 5 chronic kidney disease, or end stage renal disease; N18.6 End stage renal disease; I50.9 Heart failure, unspecified; I25.10 Atherosclerotic heart disease of native coronary artery without angina pectoris; I25.5 Ischemic cardiomyopathy; E11.22 Type 2 diabetes mellitus with diabetic chronic kidney disease; E07.9 Disorder of thyroid, unspecified; Z79.899 Other long term (current) drug therapy; Z79.890 Hormone replacement therapy; Z79.82 Long term (current) use of aspirin; Z79.4 Long term (current) use of insulin; Z88.5 Allergy status to narcotic agent; Z98.890 Other specified postprocedural states; Z99.2 Dependence on renal dialysis; Z86.79 Personal history of other diseases of the circulatory system

== ENCOUNTER → 2022-06-15 | Outpatient (REF) | payer MEDICARE, MEDICAID ==
[~2022-06-15] MED LIST changes: +INSU100I6 SC; -LEVE1INJ5 SC
== END ==
LOC: M SFHCPLAZ 15:25
PROVIDERS: ATTEND Physician Assistant Medical
DX: E03.9 Hypothyroidism, unspecified (principal); E11.69 Type 2 diabetes mellitus with other specified complication; I12.0 Hypertensive chronic kidney disease with stage 5 chronic kidney disease or end stage renal disease; N18.6 End stage renal disease; I50.22 Chronic systolic (congestive) heart failure; E55.9 Vitamin D deficiency, unspecified

== ENCOUNTER → 2022-07-13 | Outpatient (CLI) | payer MEDICARE, MEDICAID ==
[~2022-07-13] MED LIST changes: +POTA-298 PO; -POTA1TAB14 PO
[2022-07-13 17:51] LABS: HEMATOCRIT 36.6 % (36.0-47.0); MEAN CORPUSCULAR HGB CONC 30.1 g/dl (32.0-36.5); MEAN CORPUSCULAR VOLUME 89.9 fl (80.0-96.0); PLATELET COUNT, AUTOMATED 155 10^3/uL (150-450); RED BLOOD COUNT 4.07 10^6/uL (4.00-5.40); WHITE BLOOD COUNT 7.4 10^3/uL (4.0-10.0)
[2022-07-13 18:16] LABS: FREE T4 1.08 NG/DL (0.89-1.76)
[2022-07-13 18:17] LABS: ALBUMIN 3.3 G/DL (3.2-5.2); ALKALINE PHOSPHATASE 141 U/L (46-116); ALT/SGPT 45 U/L (7.0-40); AST/SGOT 36 U/L (<34); BILIRUBIN,TOTAL 0.5 MG/DL (0.3-1.2); BLOOD UREA NITROGEN 33 MG/DL (9-23); CALCIUM LEVEL 8.7 MG/DL (8.3-10.6); CARBON DIOXIDE LEVEL 30 MMOL/L (20-31); CHLORIDE LEVEL 102 MMOL/L (98-107); CREATININE FOR GFR 4.96 MG/DL (0.55-1.30); GLOMERULAR FILTRATION RATE 8.9 (>32); GLUCOSE, FASTING 124 MG/DL (74-106); POTASSIUM SERUM 4.4 MMOL/L (3.5-5.1); PTH INTACT 441.2 PG/ML (18.5-88.0); SODIUM LEVEL 140 MMOL/L (136-145); THYROID STIMULATING HORMONE 4.755 uIU/ML (0.55-4.78); TOTAL PROTEIN 6.7 G/DL (5.7-8.2)
[2022-07-13 18:27] LABS: TOTAL 25(OH) VITAMIN D > 150.0 NG/ML (20.0-100.0)
== END ==
LOC: M PLALAB 16:14
PROVIDERS: ATTEND Physician Assistant Medical
DX: E03.9 Hypothyroidism, unspecified (principal); E11.69 Type 2 diabetes mellitus with other specified complication; I50.22 Chronic systolic (congestive) heart failure; E55.9 Vitamin D deficiency, unspecified; M47.816 Spondylosis without myelopathy or radiculopathy, lumbar region; I11.0 Hypertensive heart disease with heart failure; E78.2 Mixed hyperlipidemia; Z79.899 Other long term (current) drug therapy

== ENCOUNTER → 2022-07-25 | Outpatient (CLI) | payer MEDICARE, MEDICAID ==
[2022-07-25 17:42] LABS: BASO % 0.3 % (0.0-1.0); EOS # 0.4 10^3/uL (0.0-0.5); EOS % 5.3 % (0.0-3.0); HEMATOCRIT 34.9 % (36.0-47.0); HEMOGLOBIN 10.6 g/dl (12.0-15.5); LYMPH % 13.6 % (24.0-44.0); MEAN CORPUSCULAR HEMOGLOBIN 27.4 pg (27.0-33.0); MEAN CORPUSCULAR HGB CONC 30.4 g/dl (32.0-36.5); MEAN CORPUSCULAR VOLUME 90.2 fl (80.0-96.0); MONO # 0.8 10^3/uL (0.0-0.8); MONO % 11.4 % (2.0-8.0); NEUTROPHILS % 69.1 % (36.0-66.0); PLATELET COUNT, AUTOMATED 139 10^3/uL (150-450); RED BLOOD COUNT 3.87 10^6/uL (4.00-5.40); WHITE BLOOD COUNT 7.2 10^3/uL (4.0-10.0)
[2022-07-25 17:59] LABS: FERRITIN 884.5 NG/ML (7.3-270.7)
[2022-07-27 17:08] LABS: H PYLORI SERUM QUANT IGM <9.0 units (0.0-8.9); H PYLORI SERUM QUANT IgG ABY 0.06 (0.00-0.79)
== END ==
LOC: M PLALAB 15:22
PROVIDERS: ATTEND Physician Assistant Medical
DX: D50.9 Iron deficiency anemia, unspecified (principal); R19.5 Other fecal abnormalities

== ENCOUNTER 2022-08-14 10:41 | Emergency (ER) | payer MEDICARE, MEDICAID ==
[~2022-08-14] VITALS: Ht 149.9 cm; Wt 81.8 kg
[~2022-08-14 10:41] MED LIST changes: -ROSU20TA5 PO; +ROSU20TA61 PO
[2022-08-14 10:42] VITALS: TEMP 97.5
[2022-08-14 12:23] LABS: BASO % 0.3 % (0.0-1.0); EOS # 0.3 10^3/uL (0.0-0.5); EOS % 4.6 % (0.0-3.0); HEMATOCRIT 35.2 % (36.0-47.0); HEMOGLOBIN 10.7 g/dl (12.0-15.5); LYMPH # 0.9 10^3/uL (1.5-5.0); LYMPH % 12.6 % (24.0-44.0); MEAN CORPUSCULAR HGB CONC 30.4 g/dl (32.0-36.5); MEAN CORPUSCULAR VOLUME 88.7 fl (80.0-96.0); MONO # 0.6 10^3/uL (0.0-0.8); MONO % 8.1 % (2.0-8.0); NEUTROPHILS % 74.3 % (36.0-66.0); PLATELET COUNT, AUTOMATED 134 10^3/uL (150-450); RED BLOOD COUNT 3.97 10^6/uL (4.00-5.40); WHITE BLOOD COUNT 6.8 10^3/uL (4.0-10.0)
[2022-08-14 12:36] LABS: INR 1.06
[2022-08-14 12:37] LABS: PARTIAL THROMBOPLASTIN TIME 30.2 SECONDS (24.8-34.2)
[2022-08-14 12:54] LABS: ALBUMIN 3.3 G/DL (3.2-5.2); BILIRUBIN,DIRECT 0.5 MG/DL (<0.4); BILIRUBIN,TOTAL 0.7 MG/DL (0.3-1.2); TOTAL PROTEIN 6.3 G/DL (5.7-8.2)
[2022-08-14 13:04] LABS: RSV AMPLIFICATION NEGATIVE (NEGATIVE)
[2022-08-14 13:42] LABS: CALCIUM LEVEL 8.4 MG/DL (8.3-10.6); CREATININE FOR GFR 6.85 MG/DL (0.55-1.30); GLOMERULAR FILTRATION RATE 6.1 (>32); POTASSIUM SERUM 4.8 MMOL/L (3.5-5.1)
[2022-08-14] MEDS ORDERED: ACETAMINOPHEN 1000MG 100ML IV BAG IV ONE (14:10)
[2022-08-14 14:45] VITALS: BP 128/61; O2SAT 97
== END 2022-08-14 15:16 | disposition home or self-care (01) ==
LOC: M ED 10:41
DX: N18.6 End stage renal disease (principal); I12.0 Hypertensive chronic kidney disease with stage 5 chronic kidney disease or end stage renal disease; E11.9 Type 2 diabetes mellitus without complications; E03.9 Hypothyroidism, unspecified; Z88.5 Allergy status to narcotic agent; Z79.899 Other long term (current) drug therapy; Z79.4 Long term (current) use of insulin; Z79.82 Long term (current) use of aspirin
CPT/HCPCS: 71045; 73521; 80047; 80048; 80076; 82150; 83605; 83690; 85025; 85610; 85730; 87040; 87631; 93005; 93041; 96374; 99285; J0131

== ENCOUNTER → 2022-09-03 | Outpatient (REF) | payer MEDICARE, MEDICAID | LOC: M SFHCPLAZ 13:30 | PROVIDERS: ATTEND Physician Assistant Medical | DX: R19.7 Diarrhea, unspecified (principal) ==

== ENCOUNTER 2022-10-24 17:19 | Inpatient (IN) | payer MEDICARE, MEDICAID ==
[~2022-10-24] VITALS: Ht 149.9 cm; Wt 82.3 kg
[~2022-10-24 17:19] MED LIST changes: +ACET650T61 PO; +ERGO500029 PO; +INSU100I48 SC; +INSUDET SC; +OMEP40CA5 PO; +RENATAB5 PO; +ROPI5TAB19 PO; +SUCR1TA PO
[2022-10-24 18:54] LABS: BASO % 0.5 % (0.0-1.0); EOS # 0.4 10^3/uL (0.0-0.5); EOS % 5.5 % (0.0-3.0); HEMATOCRIT 37.7 % (36.0-47.0); HEMOGLOBIN 11.8 g/dl (12.0-15.5); LYMPH # 0.8 10^3/uL (1.5-5.0); LYMPH % 12.6 % (24.0-44.0); MEAN CORPUSCULAR HEMOGLOBIN 27.6 pg (27.0-33.0); MEAN CORPUSCULAR HGB CONC 31.3 g/dl (32.0-36.5); MEAN CORPUSCULAR VOLUME 88.3 fl (80.0-96.0); MONO # 0.7 10^3/uL (0.0-0.8); MONO % 10.2 % (2.0-8.0); NEUTROPHILS # 4.7 10^3/uL (1.5-8.5); NEUTROPHILS % 70.9 % (36.0-66.0); PLATELET COUNT, AUTOMATED 141 10^3/uL (150-450); RED BLOOD COUNT 4.27 10^6/uL (4.00-5.40); WHITE BLOOD COUNT 6.6 10^3/uL (4.0-10.0)
[2022-10-24 19:02] LABS: ALBUMIN 3.5 G/DL (3.2-5.2); BILIRUBIN,DIRECT 0.4 MG/DL (<0.4); BILIRUBIN,TOTAL 0.6 MG/DL (0.3-1.2); CALCIUM LEVEL 8.6 MG/DL (8.3-10.6); CREATININE FOR GFR 5.46 MG/DL (0.55-1.30); GLOMERULAR FILTRATION RATE 7.9 (>32); POTASSIUM SERUM 3.7 MMOL/L (3.5-5.1); TOTAL PROTEIN 7.1 G/DL (5.7-8.2)
[2022-10-24] MEDS ORDERED: GLUCOSE 4GM CHEW TABLET PO PRN (21:00)
[2022-10-24] MEDS ORDERED: DEXTROSE 50% 50ML SYRINGE IV PRN (21:00)
[2022-10-24] MEDS: INSULIN LISPRO (NovoLOG) PER UNIT SC SCH (21:00)
[2022-10-24] MEDS ORDERED: GLUCAGON INJ 1MG VIAL SC PRN (21:00)
[2022-10-24] MEDS: FUROSEMIDE 40MG/4ML VIAL IV ONE ×2 (21:30→21:53)
[2022-10-24 21:33] LABS: PROCALCITONIN 0.79 ng/ml
[2022-10-24] MEDS ORDERED: CARV12.5 PO (21:34)
[2022-10-24] MEDS ORDERED: ERGO500029 PO (21:34)
[2022-10-24] MEDS ORDERED: ACET-897 PO (21:34)
[2022-10-24] MEDS ORDERED: VELP5CHW PO (21:34)
[2022-10-24] MEDS ORDERED: HOME MED LIST COMPLETE! XX SCH (21:35)
[2022-10-24 21:41] LABS: ABG BASE EXCESS 0.7 (-2.0-2.0); ABG HCO3 27.2 MMOL/L (22.0-26.0); ABG O2 SATURATION 98.6 % (95.0-99.0); ABG PARTIAL PRESSURE CO2 51.7 mmHg (35.0-45.0); ABG PARTIAL PRESSURE O2 146.5 mmHg (75.0-100.0); ABG STANDARD HCO3 25.1 MMOL/L. (22.0-26.0); ABG TOTAL CO2 28.8 MMOL/L (23.0-31.0); ABG pH (ARTERIAL) 7.339 UNITS (7.350-7.450)
[2022-10-24] MEDS ORDERED: ALBUTEROL SULFATE 2.5MG/0.5ML INH NEB SOLN NEB PRN (22:50)
[2022-10-24] MEDS ORDERED: ALBUTEROL SULFATE 2.5MG/0.5ML INH NEB SOLN NEB ONE (22:50)
[2022-10-24 23:48] VITALS: O2SAT 86
[2022-10-24 23:50] VITALS: BP 104/51; TEMP 97.5; O2SAT 96
[2022-10-24] MEDS: CARVedilol 12.5 MG TAB PO SCH (23:59)
[2022-10-24] MEDS: PANTOPRAZOLE 40MG TAB (PROTONIX) PO SCH (23:59)
[2022-10-25] MEDS: IPRATROPIUM 0.5MG/ALBUTEROL 2.5MG INH SOL UD 3ML (DUONEB) NEB SCH ×4 (01:09→20:30)
[2022-10-25] MEDS: ACETAMINOPHEN TAB 650MG DOSE (2X325MG) PO PRN ×2 (02:28→10:47)
[2022-10-25 04:40] VITALS: BP 103/54; TEMP 97.2; O2SAT 98
[2022-10-25] MEDS: LEVOTHYROXINE 50MCG TABLET (0.05MG) PO SCH (04:44)
[2022-10-25] MEDS ORDERED: SODIUM CHLORIDE 0.9% 1000ML IV PRN (05:30)
[2022-10-25] MEDS ORDERED: HEPARIN 1,000UNITS/ML 10ML VIAL (FOR RADIOLOGY & DIALYSIS ONLY) XX SCH (05:30)
[2022-10-25] MEDS ORDERED: HEPARIN 1,000UNITS/ML 10ML VIAL (FOR RADIOLOGY & DIALYSIS ONLY) IV PRN (05:30)
[2022-10-25] MEDS ORDERED: LIDOCAINE 1% SDV 5ML VIAL SC PRN (05:30)
[2022-10-25 06:02] LABS: HEMATOCRIT 35.6 % (36.0-47.0)
[2022-10-25 06:31] LABS: ALBUMIN 3.3 G/DL (3.2-5.2); BILIRUBIN,TOTAL 0.5 MG/DL (0.3-1.2); CALCIUM LEVEL 8.6 MG/DL (8.3-10.6); CREATININE FOR GFR 5.91 MG/DL (0.55-1.30); GLOMERULAR FILTRATION RATE 7.2 (>32); POTASSIUM SERUM 3.5 MMOL/L (3.5-5.1); TOTAL PROTEIN 6.6 G/DL (5.7-8.2)
[2022-10-25] MEDS ORDERED: ISOVUE-370 76% 100ML VIAL As Ordered ONE (06:59)
[2022-10-25] MEDS: INSULIN LISPRO (NovoLOG) PER UNIT SC SCH ×4 (07:30→21:33)
[2022-10-25 07:49] VITALS: BP 102/60; TEMP 97.1; O2SAT 94
[2022-10-25] MEDS: CARVedilol 12.5 MG TAB PO SCH ×2 (07:55→21:00)
[2022-10-25] MEDS: SUCROFERRIC OXYHYDROXIDE 500MG CHEW TAB (VELPHORO) PO SCH ×3 (08:11→18:34)
[2022-10-25] MEDS: EZETIMIBE 10MG TABLET (ZETIA) PO SCH (08:12)
[2022-10-25] MEDS: ROSUVASTATIN 10 MG TAB (CRESTOR) PO SCH (08:12)
[2022-10-25] MEDS: rOPINIRole 0.25 MG TAB(REQUIP) PO SCH ×2 (08:12→20:59)
[2022-10-25] MEDS: PANTOPRAZOLE 40MG TAB (PROTONIX) PO SCH ×2 (08:12→21:32)
[2022-10-25] MEDS ORDERED: LEVEMIR (INSULIN DETEMIR) 1 UNITS/0.01ML SC SCH (09:00)
[2022-10-25] MEDS ORDERED: HEPARIN SOD (PORCINE) 5000UNITS/ML 1ML VIAL/SYRINGE SC SCH (09:00)
[2022-10-25] MEDS: SUCRALFATE 1 GM TAB PO SCH ×2 (13:32→21:32)
[2022-10-25 13:35] VITALS: BP 110/51; TEMP 97.3; O2SAT 92
[2022-10-25] MEDS: LEVEMIR (INSULIN DETEMIR) 1 UNITS/0.01ML SC SCH (14:08)
[2022-10-25 16:05] VITALS: BP 90/52; TEMP 96.2; O2SAT 97
[2022-10-25 20:08] VITALS: BP 92/48; TEMP 98.3; O2SAT 95
[2022-10-25 23:18] VITALS: BP 96/52; TEMP 98; O2SAT 97
[2022-10-26] MEDS: ACETAMINOPHEN TAB 650MG DOSE (2X325MG) PO PRN ×2 (00:25→12:39)
[2022-10-26] MEDS: IPRATROPIUM 0.5MG/ALBUTEROL 2.5MG INH SOL UD 3ML (DUONEB) NEB SCH ×4 (01:19→19:34)
[2022-10-26 03:15] VITALS: BP 100/60; TEMP 97.3; O2SAT 96
[2022-10-26] MEDS ORDERED: HEPARIN 1,000UNITS/ML 10ML VIAL (FOR RADIOLOGY & DIALYSIS ONLY) IV PRN (05:25)
[2022-10-26] MEDS ORDERED: SODIUM CHLORIDE 0.9% 1000ML IV PRN (05:25)
[2022-10-26] MEDS ORDERED: LIDOCAINE 1% SDV 5ML VIAL SC PRN (05:25)
[2022-10-26] MEDS ORDERED: HEPARIN 1,000UNITS/ML 10ML VIAL (FOR RADIOLOGY & DIALYSIS ONLY) XX SCH (05:25)
[2022-10-26] MEDS: LEVOTHYROXINE 50MCG TABLET (0.05MG) PO SCH (06:16)
[2022-10-26 06:24] LABS: HEMATOCRIT 36.9 % (36.0-47.0); HEMOGLOBIN 11.1 g/dl (12.0-15.5); MEAN CORPUSCULAR HEMOGLOBIN 27.1 pg (27.0-33.0); MEAN CORPUSCULAR HGB CONC 30.1 g/dl (32.0-36.5); PLATELET COUNT, AUTOMATED 123 10^3/uL (150-450); WHITE BLOOD COUNT 6.5 10^3/uL (4.0-10.0)
[2022-10-26 06:46] LABS: ALBUMIN 3.3 G/DL (3.2-5.2); CALCIUM LEVEL 8.7 MG/DL (8.3-10.6); CREATININE FOR GFR 4.16 MG/DL (0.55-1.30); GLOMERULAR FILTRATION RATE 10.9 (>32); PHOSPHORUS LEVEL 4.8 MG/DL (2.4-5.1)
[2022-10-26] MEDS: INSULIN LISPRO (NovoLOG) PER UNIT SC SCH ×4 (07:30→21:00)
[2022-10-26 07:50] VITALS: BP 94/52; TEMP 97.3; O2SAT 94
[2022-10-26] MEDS: MIDODRINE 5 MG TAB PO PRN (07:58)
[2022-10-26] MEDS: SUCROFERRIC OXYHYDROXIDE 500MG CHEW TAB (VELPHORO) PO SCH ×3 (08:00→17:46)
[2022-10-26] MEDS: EZETIMIBE 10MG TABLET (ZETIA) PO SCH (12:39)
[2022-10-26] MEDS: SUCRALFATE 1 GM TAB PO SCH ×2 (12:40→21:16)
[2022-10-26] MEDS: ROSUVASTATIN 10 MG TAB (CRESTOR) PO SCH (12:40)
[2022-10-26] MEDS: PANTOPRAZOLE 40MG TAB (PROTONIX) PO SCH ×2 (12:41→21:17)
[2022-10-26] MEDS: CARVedilol 12.5 MG TAB PO SCH ×2 (12:42→21:00)
[2022-10-26] MEDS: LEVEMIR (INSULIN DETEMIR) 1 UNITS/0.01ML SC SCH (12:42)
[2022-10-26 13:32] LABS: PROCALCITONIN 0.59 ng/ml
[2022-10-26 20:00] VITALS: BP 95/48; TEMP 97.8; O2SAT 98
[2022-10-26 23:55] VITALS: BP 80/58; TEMP 98.3; O2SAT 96
[2022-10-27] MEDS ORDERED: PERCOCET 5MG/325MG TAB PO ONE (00:55)
[2022-10-27] MEDS ORDERED: DIGOXIN INJ 0.5 MG/2 ML AMP IV ONE (00:55)
[2022-10-27] MEDS: IPRATROPIUM 0.5MG/ALBUTEROL 2.5MG INH SOL UD 3ML (DUONEB) NEB SCH ×4 (01:21→19:16)
[2022-10-27 04:43] VITALS: BP 92/58; TEMP 97.9; O2SAT 95
[2022-10-27] MEDS ORDERED: HEPARIN 1,000UNITS/ML 10ML VIAL (FOR RADIOLOGY & DIALYSIS ONLY) IV PRN (05:25)
[2022-10-27] MEDS ORDERED: HEPARIN 1,000UNITS/ML 10ML VIAL (FOR RADIOLOGY & DIALYSIS ONLY) XX SCH (05:25)
[2022-10-27] MEDS ORDERED: LIDOCAINE 1% SDV 5ML VIAL SC PRN (05:25)
[2022-10-27] MEDS ORDERED: SODIUM CHLORIDE 0.9% 1000ML IV PRN (05:25)
[2022-10-27 05:53] LABS: HEMATOCRIT 36.8 % (36.0-47.0); HEMOGLOBIN 11.3 g/dl (12.0-15.5); MEAN CORPUSCULAR HEMOGLOBIN 27.5 pg (27.0-33.0); MEAN CORPUSCULAR HGB CONC 30.7 g/dl (32.0-36.5); MEAN CORPUSCULAR VOLUME 89.5 fl (80.0-96.0); PLATELET COUNT, AUTOMATED 142 10^3/uL (150-450); RED BLOOD COUNT 4.11 10^6/uL (4.00-5.40); WHITE BLOOD COUNT 7.9 10^3/uL (4.0-10.0)
[2022-10-27 06:21] LABS: ALBUMIN 3.4 G/DL (3.2-5.2); CALCIUM LEVEL 8.6 MG/DL (8.3-10.6); CREATININE FOR GFR 6.07 MG/DL (0.55-1.30); PHOSPHORUS LEVEL 5.9 MG/DL (2.4-5.1); POTASSIUM SERUM 4.3 MMOL/L (3.5-5.1)
[2022-10-27] MEDS: LEVOTHYROXINE 50MCG TABLET (0.05MG) PO SCH (06:36)
[2022-10-27] MEDS: INSULIN LISPRO (NovoLOG) PER UNIT SC SCH ×4 (07:30→21:00)
[2022-10-27] MEDS: CARVedilol 12.5 MG TAB PO SCH ×2 (07:48→21:00)
[2022-10-27] MEDS: SUCROFERRIC OXYHYDROXIDE 500MG CHEW TAB (VELPHORO) PO SCH ×3 (07:58→18:09)
[2022-10-27] MEDS: MIDODRINE 5 MG TAB PO PRN (07:59)
[2022-10-27 08:00] VITALS: BP 95/65; TEMP 98.1; O2SAT 96
[2022-10-27 12:32] VITALS: BP 105/54; TEMP 97.6; O2SAT 96
[2022-10-27] MEDS: rOPINIRole 0.25 MG TAB(REQUIP) PO SCH ×2 (13:30→22:21)
[2022-10-27] MEDS: PANTOPRAZOLE 40MG TAB (PROTONIX) PO SCH ×2 (13:30→22:21)
[2022-10-27] MEDS: ROSUVASTATIN 10 MG TAB (CRESTOR) PO SCH (13:30)
[2022-10-27] MEDS: EZETIMIBE 10MG TABLET (ZETIA) PO SCH (13:30)
[2022-10-27] MEDS: LEVEMIR (INSULIN DETEMIR) 1 UNITS/0.01ML SC SCH (13:31)
[2022-10-27] MEDS: SUCRALFATE 1 GM TAB PO SCH ×2 (13:31→22:21)
[2022-10-27 16:00] VITALS: BP 113/55; TEMP 98.7; O2SAT 95
[2022-10-27 20:20] VITALS: BP 112/54; TEMP 98.6; O2SAT 93
[2022-10-27 23:50] VITALS: BP 112/69; TEMP 97.6; O2SAT 92
[2022-10-28] MEDS: IPRATROPIUM 0.5MG/ALBUTEROL 2.5MG INH SOL UD 3ML (DUONEB) NEB SCH ×4 (01:38→19:29)
[2022-10-28 04:24] VITALS: BP 110/56; TEMP 97.5; O2SAT 91
[2022-10-28] MEDS ORDERED: HEPARIN 1,000UNITS/ML 10ML VIAL (FOR RADIOLOGY & DIALYSIS ONLY) IV PRN (06:00)
[2022-10-28] MEDS ORDERED: SODIUM CHLORIDE 0.9% 1000ML IV PRN (06:00)
[2022-10-28] MEDS ORDERED: HEPARIN 1,000UNITS/ML 10ML VIAL (FOR RADIOLOGY & DIALYSIS ONLY) XX SCH (06:00)
[2022-10-28] MEDS: LEVOTHYROXINE 50MCG TABLET (0.05MG) PO SCH (06:14)
[2022-10-28] MEDS: MIDODRINE 5 MG TAB PO PRN (06:14)
[2022-10-28 06:20] LABS: HEMATOCRIT 37.5 % (36.0-47.0); HEMOGLOBIN 11.4 g/dl (12.0-15.5); MEAN CORPUSCULAR HEMOGLOBIN 27.3 pg (27.0-33.0); MEAN CORPUSCULAR HGB CONC 30.4 g/dl (32.0-36.5); MEAN CORPUSCULAR VOLUME 89.9 fl (80.0-96.0); PLATELET COUNT, AUTOMATED 134 10^3/uL (150-450); RED BLOOD COUNT 4.17 10^6/uL (4.00-5.40); WHITE BLOOD COUNT 7.3 10^3/uL (4.0-10.0)
[2022-10-28 06:59] LABS: ALBUMIN 3.4 G/DL (3.2-5.2); CALCIUM LEVEL 9.1 MG/DL (8.3-10.6); CREATININE FOR GFR 4.6 MG/DL (0.55-1.30); GLOMERULAR FILTRATION RATE 9.7 (>32); PHOSPHORUS LEVEL 4.4 MG/DL (2.4-5.1); POTASSIUM SERUM 4.5 MMOL/L (3.5-5.1)
[2022-10-28 08:18] VITALS: BP 110/56; TEMP 97.3; O2SAT 93
[2022-10-28] MEDS: EZETIMIBE 10MG TABLET (ZETIA) PO SCH (08:53)
[2022-10-28] MEDS: SUCROFERRIC OXYHYDROXIDE 500MG CHEW TAB (VELPHORO) PO SCH ×3 (08:53→18:33)
[2022-10-28] MEDS: CARVedilol 12.5 MG TAB PO SCH ×2 (08:54→20:19)
[2022-10-28] MEDS: ROSUVASTATIN 10 MG TAB (CRESTOR) PO SCH (08:54)
[2022-10-28] MEDS: PANTOPRAZOLE 40MG TAB (PROTONIX) PO SCH ×2 (08:54→20:20)
[2022-10-28] MEDS: LEVEMIR (INSULIN DETEMIR) 1 UNITS/0.01ML SC SCH (08:54)
[2022-10-28] MEDS: SUCRALFATE 1 GM TAB PO SCH (08:54)
[2022-10-28] MEDS: INSULIN LISPRO (NovoLOG) PER UNIT SC SCH ×4 (08:55→20:15)
[2022-10-28 17:28] VITALS: BP 99/60; TEMP 97; O2SAT 96
[2022-10-28 19:48] VITALS: BP 100/48; TEMP 98.6; O2SAT 96
[2022-10-28 23:22] VITALS: BP 102/59; TEMP 99.2; O2SAT 95
[2022-10-29] MEDS: IPRATROPIUM 0.5MG/ALBUTEROL 2.5MG INH SOL UD 3ML (DUONEB) NEB SCH ×4 (01:05→19:41)
[2022-10-29] MEDS: ACETAMINOPHEN TAB 650MG DOSE (2X325MG) PO PRN (03:51)
[2022-10-29 04:00] VITALS: BP 101/52; TEMP 98.7; O2SAT 96
[2022-10-29] MEDS: LEVOTHYROXINE 50MCG TABLET (0.05MG) PO SCH (05:34)
[2022-10-29 07:03] LABS: HEMATOCRIT 38.4 % (36.0-47.0); HEMOGLOBIN 11.7 g/dl (12.0-15.5); MEAN CORPUSCULAR HEMOGLOBIN 27.3 pg (27.0-33.0); MEAN CORPUSCULAR HGB CONC 30.5 g/dl (32.0-36.5); MEAN CORPUSCULAR VOLUME 89.7 fl (80.0-96.0); PLATELET COUNT, AUTOMATED 132 10^3/uL (150-450); RED BLOOD COUNT 4.28 10^6/uL (4.00-5.40); WHITE BLOOD COUNT 6.8 10^3/uL (4.0-10.0)
[2022-10-29 07:34] LABS: ALBUMIN 3.5 G/DL (3.2-5.2); CALCIUM LEVEL 8.6 MG/DL (8.3-10.6); CREATININE FOR GFR 3.52 MG/DL (0.55-1.30); GLOMERULAR FILTRATION RATE 13.2 (>32); PHOSPHORUS LEVEL 3.2 MG/DL (2.4-5.1); POTASSIUM SERUM 3.5 MMOL/L (3.5-5.1)
[2022-10-29 08:04] VITALS: BP 100/63; TEMP 96.4; O2SAT 95
[2022-10-29] MEDS: CARVedilol 12.5 MG TAB PO SCH ×2 (08:14→20:08)
[2022-10-29] MEDS: EZETIMIBE 10MG TABLET (ZETIA) PO SCH (08:54)
[2022-10-29] MEDS: SUCROFERRIC OXYHYDROXIDE 500MG CHEW TAB (VELPHORO) PO SCH ×3 (08:54→18:06)
[2022-10-29] MEDS: LEVEMIR (INSULIN DETEMIR) 1 UNITS/0.01ML SC SCH (08:55)
[2022-10-29] MEDS: ROSUVASTATIN 10 MG TAB (CRESTOR) PO SCH (08:55)
[2022-10-29] MEDS: INSULIN LISPRO (NovoLOG) PER UNIT SC SCH ×4 (08:55→20:08)
[2022-10-29] MEDS: PANTOPRAZOLE 40MG TAB (PROTONIX) PO SCH ×2 (08:55→20:09)
[2022-10-29 12:04] VITALS: BP 102/57; TEMP 97.2; O2SAT 95
[2022-10-29 19:59] VITALS: BP 98/52; TEMP 97; O2SAT 96
[2022-10-30] MEDS: IPRATROPIUM 0.5MG/ALBUTEROL 2.5MG INH SOL UD 3ML (DUONEB) NEB SCH ×2 (02:36→07:36)
[2022-10-30 03:39] VITALS: BP 102/58; TEMP 98; O2SAT 94
[2022-10-30] MEDS: LEVOTHYROXINE 50MCG TABLET (0.05MG) PO SCH (05:52)
[2022-10-30] MEDS: ROSUVASTATIN 10 MG TAB (CRESTOR) PO SCH (06:07)
[2022-10-30] MEDS: PANTOPRAZOLE 40MG TAB (PROTONIX) PO SCH (06:07)
[2022-10-30] MEDS: MIDODRINE 5 MG TAB PO PRN ×2 (06:07→11:42)
[2022-10-30 06:37] LABS: HEMOGLOBIN 11.9 g/dl (12.0-15.5); MEAN CORPUSCULAR HEMOGLOBIN 27.3 pg (27.0-33.0); MEAN CORPUSCULAR HGB CONC 30.5 g/dl (32.0-36.5); MEAN CORPUSCULAR VOLUME 89.4 fl (80.0-96.0); PLATELET COUNT, AUTOMATED 137 10^3/uL (150-450); RED BLOOD COUNT 4.36 10^6/uL (4.00-5.40); WHITE BLOOD COUNT 7.2 10^3/uL (4.0-10.0)
[2022-10-30 06:55] LABS: ALBUMIN 3.5 G/DL (3.2-5.2); CALCIUM LEVEL 8.7 MG/DL (8.3-10.6); CREATININE FOR GFR 4.75 MG/DL (0.55-1.30); GLOMERULAR FILTRATION RATE 9.3 (>32); PHOSPHORUS LEVEL 3.5 MG/DL (2.4-5.1); POTASSIUM SERUM 3.8 MMOL/L (3.5-5.1)
[2022-10-30 07:19] VITALS: BP 92/58; TEMP 97.1; O2SAT 98
[2022-10-30] MEDS: rOPINIRole 0.25 MG TAB(REQUIP) PO SCH (08:33)
[2022-10-30] MEDS: SUCROFERRIC OXYHYDROXIDE 500MG CHEW TAB (VELPHORO) PO SCH ×2 (08:33→11:41)
[2022-10-30] MEDS: EZETIMIBE 10MG TABLET (ZETIA) PO SCH (08:33)
[2022-10-30 08:34] VITALS: BP 92/58
[2022-10-30] MEDS: INSULIN LISPRO (NovoLOG) PER UNIT SC SCH ×2 (08:34→11:41)
[2022-10-30] MEDS: CARVedilol 12.5 MG TAB PO SCH (08:34)
[2022-10-30] MEDS: LEVEMIR (INSULIN DETEMIR) 1 UNITS/0.01ML SC SCH (08:34)
[2022-10-30] MEDS ORDERED: MIDO5TA PO (10:13)
[2022-10-30] MEDS ORDERED: HEPARIN 1,000UNITS/ML 10ML VIAL (FOR RADIOLOGY & DIALYSIS ONLY) XX SCH (10:30)
[2022-10-30] MEDS ORDERED: LIDOCAINE 1% SDV 5ML VIAL SC PRN (10:30)
[2022-10-30] MEDS ORDERED: SODIUM CHLORIDE 0.9% 1000ML IV PRN (10:30)
[2022-10-30] MEDS ORDERED: HEPARIN 1,000UNITS/ML 10ML VIAL (FOR RADIOLOGY & DIALYSIS ONLY) IV PRN (10:30)
[2022-10-30 17:26] VITALS: BP 110/51
[2022-10-30] MEDS: ACETAMINOPHEN TAB 650MG DOSE (2X325MG) PO PRN (17:27)
== END 2022-10-30 18:03 | disposition home health service (06) | DRG 291 ==
LOC: M ED 17:19 → M ED INP 20:42 → ENRESERV 21:45 → M PCU 23:46
PROVIDERS: ADMIT Internal Medicine; ATTEND Internal Medicine
PROC: 5A1D70Z Performance of Urinary Filtration, Intermittent, Less than 6 Hours Per Day (ICD-10-PCS; principal; 2022-10-25)
PROC: B246ZZZ Ultrasonography of Right and Left Heart (ICD-10-PCS; 2022-10-25)
DX: I13.2 Hypertensive heart and chronic kidney disease with heart failure and with stage 5 chronic kidney disease, or end stage renal disease (principal); N18.6 End stage renal disease; I50.23 Acute on chronic systolic (congestive) heart failure; J96.01 Acute respiratory failure with hypoxia; K92.2 Gastrointestinal hemorrhage, unspecified; E11.22 Type 2 diabetes mellitus with diabetic chronic kidney disease; I27.20 Pulmonary hypertension, unspecified; I48.91 Unspecified atrial fibrillation; E78.00 Pure hypercholesterolemia, unspecified; R19.7 Diarrhea, unspecified; E03.9 Hypothyroidism, unspecified; I95.9 Hypotension, unspecified; D64.9 Anemia, unspecified; G25.81 Restless legs syndrome; I25.10 Atherosclerotic heart disease of native coronary artery without angina pectoris; Z79.4 Long term (current) use of insulin; Z79.890 Hormone replacement therapy; Z79.899 Other long term (current) drug therapy; Z88.5 Allergy status to narcotic agent; Z20.822 Contact with and (suspected) exposure to COVID-19; Z66 Do not resuscitate; Z99.2 Dependence on renal dialysis; I27.22 Pulmonary hypertension due to left heart disease

== ENCOUNTER 2022-10-31 15:35 | Emergency (ER) | payer MEDICARE, MEDICAID ==
[~2022-10-31] VITALS: Ht 149.9 cm; Wt 82.6 kg
[~2022-10-31 15:35] MED LIST changes: +ACET-897 PO; +MIDO5TA PO
[2022-10-31 15:36] VITALS: TEMP 98.7
[2022-10-31 16:30] VITALS: BP 95/52
[2022-10-31 17:07] LABS: BASO % 0.6 % (0.0-1.0); EOS # 0.5 10^3/uL (0.0-0.5); EOS % 6.6 % (0.0-3.0); HEMATOCRIT 40.4 % (36.0-47.0); HEMOGLOBIN 12.2 g/dl (12.0-15.5); LYMPH # 0.8 10^3/uL (1.5-5.0); LYMPH % 11.5 % (24.0-44.0); MEAN CORPUSCULAR HEMOGLOBIN 27.1 pg (27.0-33.0); MEAN CORPUSCULAR HGB CONC 30.2 g/dl (32.0-36.5); MEAN CORPUSCULAR VOLUME 89.8 fl (80.0-96.0); MONO # 0.8 10^3/uL (0.0-0.8); MONO % 11.2 % (2.0-8.0); NEUTROPHILS # 4.7 10^3/uL (1.5-8.5); NEUTROPHILS % 69.7 % (36.0-66.0); PLATELET COUNT, AUTOMATED 140 10^3/uL (150-450); WHITE BLOOD COUNT 6.8 10^3/uL (4.0-10.0)
[2022-10-31 17:22] LABS: INR 1.14; PROTHROMBIN TIME 14.3 SECONDS (12.5-14.5)
[2022-10-31 17:30] VITALS: O2SAT 96
[2022-10-31 17:36] LABS: ALBUMIN 3.5 G/DL (3.2-5.2); BILIRUBIN,DIRECT 0.5 MG/DL (<0.4); BILIRUBIN,TOTAL 0.7 MG/DL (0.3-1.2); CALCIUM LEVEL 8.8 MG/DL (8.3-10.6); CREATININE FOR GFR 4.13 MG/DL (0.55-1.30); GLOMERULAR FILTRATION RATE 10.9 (>32)
== END 2022-10-31 18:20 | disposition home or self-care (01) ==
LOC: M ED 15:35
DX: I95.9 Hypotension, unspecified (principal); N18.6 End stage renal disease; I48.91 Unspecified atrial fibrillation; I50.20 Unspecified systolic (congestive) heart failure; E11.9 Type 2 diabetes mellitus without complications; I27.20 Pulmonary hypertension, unspecified; E03.9 Hypothyroidism, unspecified; Z95.5 Presence of coronary angioplasty implant and graft; Z99.2 Dependence on renal dialysis

== ENCOUNTER → 2023-02-06 | Outpatient (CLI) | payer MEDICARE, MEDICAID ==
[2023-02-06 15:58] LABS: BASO % 0.4 % (0.0-1.0); EOS # 0.4 10^3/uL (0.0-0.5); EOS % 5.4 % (0.0-3.0); HEMATOCRIT 38.3 % (36.0-47.0); HEMOGLOBIN 11.4 g/dl (12.0-15.5); LYMPH # 0.7 10^3/uL (1.5-5.0); LYMPH % 10.6 % (24.0-44.0); MEAN CORPUSCULAR HEMOGLOBIN 28.8 pg (27.0-33.0); MEAN CORPUSCULAR HGB CONC 29.8 g/dl (32.0-36.5); MEAN CORPUSCULAR VOLUME 96.7 fl (80.0-96.0); MONO # 0.8 10^3/uL (0.0-0.8); MONO % 11.2 % (2.0-8.0); NEUTROPHILS # 4.8 10^3/uL (1.5-8.5); NEUTROPHILS % 72.1 % (36.0-66.0); PLATELET COUNT, AUTOMATED 129 10^3/uL (150-450); RED BLOOD COUNT 3.96 10^6/uL (4.00-5.40); WHITE BLOOD COUNT 6.7 10^3/uL (4.0-10.0)
[2023-02-06 16:08] LABS: FERRITIN 1301.5 NG/ML (7.3-270.7)
== END ==
LOC: M PLALAB 14:47
PROVIDERS: ATTEND Physician Assistant Medical
DX: D50.9 Iron deficiency anemia, unspecified (principal)

== ENCOUNTER 2023-04-21 17:00 | Emergency (ER) | payer MEDICARE, MEDICAID ==
[~2023-04-21] VITALS: Ht 147.3 cm; Wt 75.0 kg
[2023-04-21 19:59] VITALS: BP 120/58; TEMP 97.4; O2SAT 97
== END 2023-04-21 20:06 | disposition home or self-care (01) ==
LOC: EDBD 17:00 → M ED 17:00
DX: R04.0 Epistaxis (principal); I50.20 Unspecified systolic (congestive) heart failure; E11.9 Type 2 diabetes mellitus without complications; N18.6 End stage renal disease; Z88.5 Allergy status to narcotic agent; Z99.81 Dependence on supplemental oxygen; Z79.899 Other long term (current) drug therapy; Z79.4 Long term (current) use of insulin